=== PATIENT | male | born 1980 | race Two or more races ===

== ENCOUNTER 2019-03-11 20:04 | Emergency (ER) | payer SELFPAY ==
[~2019-03-11] VITALS: Ht 167.6 cm; Wt 77.1 kg
[2019-03-11 20:28] VITALS: BP 138/92
[2019-03-11] MEDS ORDERED: cefTRIAXone SOD 1,000 MG VL IM ONE (21:30)
[2019-03-11] MEDS ORDERED: TETANUS-DIPTH-ACEL PERTUSSIS 0.5ML SYRG IM ONE (21:30)
== END 2019-03-11 22:38 | disposition home or self-care (01) ==
LOC: ER 20:08
DX: S01.312A Laceration without foreign body of left ear, initial encounter (principal); W01.0XXA Fall on same level from slipping, tripping and stumbling without subsequent striking against object, initial encounter; Y93.89 Activity, other specified; Y99.8 Other external cause status; Y92.89 Other specified places as the place of occurrence of the external cause
CPT/HCPCS: 12013; 70450; 90471; 90715; 96372; 99284; J0696

== ENCOUNTER 2025-05-18 16:01 | Emergency (ER) | payer MEDICAID, OTHER ==
[~2025-05-18] VITALS: Ht 167.6 cm; Wt 76.5 kg
--- NOTE | 2025-05-18 16:38 | ED.PDOC ---
History of Present Illness HPI Comments This is a 45 year old male presenting to the ED with chief complaint of rashes and jaundice. Patient reports that he has been experiencing itchiness to his whole body with associated rashes and jaundice for the past 3 weeks. Patient relays that he was seen by urgent care this afternoon and had labs performed, being told his bilirubin level was high, advising him to come into the ED. Patient notes he only occasionally drinks about twice a month minimally. Patient denies any N/V/D, abdominal pain, chest pain, SOB, dizziness, N/V, fever, or chills. Time Seen by MD: 16:36 Primary Care Provider: NONE Reviewed Notes: Nurses Notes, Medications, Allergies Allergies: Coded Allergies: NO KNOWN ALLERGIES (Unverified , 03/11/19) Information Source: Patient Mode of Arrival: Ambulatory Severity: Moderate Timing: Weeks Duration: Since onset Prehospital treatment: None Past Medical History PAST MEDICAL HISTORY: DM Surgical History: Denies all surgeries Family History Family History: Unknown Social History Smoker: Non-Smoker Alcohol: Denies ETOH Use Drugs: Denies Drug Use Lives In: Home Constitutional: denies: chills, diaphoresis, fatigue, fever, malaise, sweats, weakness, others EENTM: denies: blurred vision, double vision, ear bleeding, ear discharge, ear drainage, ear pain, ear ringing, eye pain, eye redness, hearing loss, mouth pain, mouth swelling, nasal discharge, nose bleeding, nose congestion, nose pain, photophobia, tearing, throat pain, throat swelling, voice changes, others Respiratory: denies: cough, hemoptysis, orthopnea, SOB at rest, shortness of breath, SOB with excertion, stridor, wheezing, others Cardiovascular: denies: chest pain, dizzy spells, diaphoresis, Dyspnea on exertion, edema, irregular heart beat, left arm pain, lightheadedness, palpitations, PND, syncope, others Gastrointestinal: denies: abdomen distended, abdominal pain, blood streaked bowels, constipated, diarrhea, dysphagia, difficulty swallowing, hematemesis, melena, nausea, poor appetite, poor fluid intake, rectal bleeding, rectal pain, vomiting, others Genitourinary: denies: burning, dysuria, flank pain, frequency, hematuria, incontinence, penile discharge, penile sore, pain, testicle pain, testicle swelling, urgency, others Neurological: denies: dizziness, fainting, headache, left sided numbness, left sided weakness, numbness, paresthesia, pre-existing deficit, right sided numbness, right sided weakness, seizure, speech problems, tingling, tremors, weakness, others Musculoskeletal: denies: back pain, gout, joint pain, joint swelling, muscle pain, muscle stiffness, neck pain, others Integumetry: reports: change in color (Yellow), lesions; denies: bruises, change in hair/nails, dryness, laceration, lumps, rash, wounds, others Allergic/Immunocompromised: reports: Itching; denies: Difficulty Healing, Frequent Infections, Hives, others Hematologic/Lymphatic: denies: anemia, blood clots, easy bleeding, easy bruising, swollen glands, others Endocrine: denies: excessive hunger, excessive sweating, excessive thirst, excessive urination, flushing, intolerance to cold, intolerance to heat, unexplained weight gain, unexplained weight loss, others Psychiatric: denies: anxiety, bipolar disorder, depression, hopeless, panic disorder, schizophrenia, sleepless, suicidal, others All Other Systems: Reviewed and Negative Physical Exam General Appearance: No Apparent Distress, Normal HEENT: Pharynx Normal, Scleral Icterus (L), Scleral Icterus (R), TMs Normal Neck: Full Range of Motion, Non-Tender, Normal, Normal Inspection Respiratory: Chest Non-Tender, Lungs Clear, No Accessory Muscle Use, No Respiratory Distress, Normal Breath Sounds Cardiovascular: No Edema, No JVD, No Murmur, No Gallop, Normal Peripheral Pulses, Regular Rate/Rhythm Breast Exam: Deferred Gastrointestinal: No Organomegaly, Non Tender, No Pulsatile Mass, Normal Bowel Sounds, Soft Genitalia: Deferred Pelvic: Deferred Rectal: Deferred Extremities: No calf tenderness, Normal capillary refill, Normal inspection, Normal range of motion, Non-tender, No pedal edema Musculoskeletal : Apperance: Normal Neurologic: Alert, systems trainer II-XII nml as Tested, No Motor Deficits, Normal Affect, Normal Mood, No Sensory Deficits Cerebellar Function: Normal Reflexes: Normal Skin: Dry, Jaundice, Warm, Other (Petechiae and purpura noted to extremities.) Lymphatic: No Adenopathy Was a procedure done? Was a procedure done?: No Differential Dx Considerations may include: Biliary sclerosis, Hepatitis, Liver Cirrhosis, coagulopathy X-Ray, Labs, Meds, VS Vital Signs Date Time Temp Pulse Resp B/P (MAP) Pulse Ox O2 Delivery O2 Flow Rate FiO2 05/18/25 18:16 98.3 71 20 122/56 (78) 97 98.3 05/18/25 16:41 98.2 70 16 114/75 (88) 97 98.2 Lab Test 05/18/25 16:48 Range/Units White Blood Count 8.0 4.4-10.8 10^3/uL Red Blood Count 5.11 4.5-5.90 10^6/uL Hemoglobin 15.2 13.5-17.5 g/dL Hematocrit 44.4 41.0-53.0 % Mean Corpuscular Volume 86.9 80.0-100.0 fL Mean Corpuscular Hemoglobin 29.8 28.0-32.0 pg Mean Corpuscular Hemoglobin Concent 34.3 32.0-36.0 g/dL Red Cell Distribution Width 17.0 H 11.8-14.3 % Platelet Count 352 140-450 10^3/uL Mean Platelet Volume 9.1 6.9-10.8 fL Neutrophils (%) (Auto) 61.1 37.0-80.0 % Lymphocytes (%) (Auto) 25.2 10.0-50.0 % Monocytes (%) (Auto) 12.9 H 0.0-12.0 % Eosinophils (%) (Auto) 0.4 0.0-7.0 % Basophils (%) (Auto) 0.4 0.0-2.0 % Neutrophils # (Auto) 4.9 1.6-8.6 10 ^3/uL Lymphocytes # (Auto) 2.0 0.4-5.4 10 ^3/uL Monocytes # (Auto) 1.0 0-1.3 10 ^3/uL Eosinophils # (Auto) 0 0-0.8 10 ^3/uL Basophils # (Auto) 0 0-0.2 10 ^3/uL Nucleated Red Blood Cells 0.0 % Sodium Level 134 L 136-145 mmol/L Potassium Level 4.0 3.5-5.1 mmol/L Chloride Level 99 98-107 mmol/L Carbon Dioxide Level 28 20-31 mmol/L Anion Gap 7 5-15 Blood Urea Nitrogen 13 9-23 mg/dL Creatinine 0.88 0.700-1.30 mg/dL Glomerular Filtration Rate Calc 107 >90 mL/min BUN/Creatinine Ratio 14.8 10.0-20.0 Serum Glucose 137 H 74-106 mg/dL Calcium Level 9.9 8.7-10.4 mg/dL Total Bilirubin 16.3 H 0.2-1.0 mg/dL Aspartate Amino Transferase (AST) 46 H 13-40 U/L Alanine Aminotransferase (ALT) 58 H 7-40 U/L Alkaline Phosphatase 314 H 46-116 U/L Total Protein 8.0 5.7-8.2 g/dL Albumin 4.4 3.2-4.8 g/dL Acetaminophen Level 10.0 10.0-20.0 UG/ML Time of 1ST Reevaluation: 17:33 Reevaluation 1ST: Unchanged Time of 2ND Reevaluation: 18:23 Reevaluation 2ND: Unchanged Patient Education/Counseling: Diagnosis, Treatment, Prognosis, Need For Follow Up Family Education/Counseling: No Family Present Comments pt is comfortable. other than the pruritis due to hyperbilirubinemia, the US is inconclusive. pt will need further studies. Additional Information Reviewed patient's previous visit(s): None The following tests were ordered, and results were reviewed by me: CBC, CMP, Coag panel, Gallbladder US, UDS, Acetaminophen Additional information was gathered from interviewing the following independent historian: None I reviewed and agreed with the following test results read by other provider: Gallbladder US I discussed treatments and results with medical personnel and: Patient Comprehensive systems review obtained and negative except for what is stated in the HPI. SEPSIS Sepsis Screen Physician Orders Ptt & Cbc Qd While On Heparin (05/18/25 16:32) Gallbladder (05/18/25 16:38) Drug Screen (05/18/25 16:38) Vital Signs Date Time Temp Pulse Resp B/P (MAP) Pulse Ox O2 Delivery O2 Flow Rate FiO2 05/18/25 18:16 98.3 71 20 122/56 (78) 97 98.3 05/18/25 16:41 98.2 70 16 114/75 (88) 97 98.2 Laboratory Tests Test 05/18/25 16:48 White Blood Count 8.0 10^3/uL (4.4-10.8) Departure 1 Departure Time of Disposition: 18:25 Impression: Primary Impression: Hyperbilirubinemia Additional Impression: Abnormal liver ultrasound Disposition: 09 ADMITTED INPATIENT Admit to: Med Surg Condition: Serious Discharged With: Self Critical Care Note Critical Care Time?: Yes (55 min-critical care time only) Critical care comment: due to concerns for patient's condition deteriorating, the care required my highest level of attention and readiness to intervene. i assessed the patient's condition, ordered the proper tests and treatments, reassessed for response and reviewed the results. i communicated with medical personnel and formulated a plan of care. total critical care time does not include any procedures Stability Stability form required: No Heart Score Heart Score: Heart Score Response (Comments) Value History N/A 0 EKG N/A 0 Age N/A 0 Risk Factors N/A 0 Troponin N/A 0 Total 0 I personally scribed for NEDRA JAEGER MD ([email or web address]) on 05/18/25 at 16:38. Electronically submitted by Chaitanya Pollard ([email or web address]). I personally scribed for NEDRA JAEGER MD ([email or web address]) on 05/18/25 at 16:44. Electronically submitted by Chaitanya Pollard ([email or web address]). NEDRA JAEGER MD May 18, 2025 16:38
[2025-05-18 17:14] LABS: Hematocrit 44.4 % (41.0-53.0); Hemoglobin 15.2 g/dL (13.5-17.5); Mean Corpuscular Hemoglobin 29.8 pg (28.0-32.0); Mean Corpuscular Volume 86.9 fL (80.0-100.0); Nucleated Red Blood Cells % 0.0 %
[2025-05-18 17:28] LABS: Albumin 4.4 g/dL (3.2-4.8); Anion Gap 7 (5-15); Blood Urea Nitrogen 13 mg/dL (9-23); Calcium 9.9 mg/dL (8.7-10.4); Carbon Dioxide 28 mmol/L (20-31); Chloride 99 mmol/L (98-107); Potassium 4.0 mmol/L (3.5-5.1)
[2025-05-18 17:29] LABS: BUN/Creatinine Ratio 14.8 (10.0-20.0)
[2025-05-18 17:32] LABS: Alanine Aminotransferase 58 U/L (7-40); Alkaline Phosphatase 314 U/L (46-116); Bilirubin, Total 16.3 mg/dL (0.2-1.0); Glucose 137 mg/dL (74-106); Sodium 134 mmol/L (136-145); Total Protein 8.0 g/dL (5.7-8.2)
--- NOTE | 2025-05-18 18:20 | DVH ---
EXAM: US GALLBLADDER CLINICAL HISTORY: jaundice TECHNIQUE: Grayscale and limited color flow doppler ultrasound of the right upper quadrant is perfor med. COMPARISON: None Findings: Liver measures 16.5 cm in length with heterogeneous echotexture and contour. Intrahepatic ductal dila tation. Multiple hypoechoic lesions throughout the liver, the largest measures 0.7 x 0.6 x 0.8 cm. Co mmon bile duct measures 1.0 cm in diameter. Normal hepatopedal flow noted within the portal vein. No perihepatic free fluid is noted. Gallbladder is distended with wall thickness measuring 0.4 cm. There is shadowing calculi and biliary sludge. No evidence of pericholecystic fluid. Negative sonographic Chowdary's sign. Pancreas not well-visualized due to overlying bowel gas. Right kidney measures 10.9 cm with normal contours, echotexture and cortical thickness. 0.3 cm cortic al calcification. No evidence of hydronephrosis, calculi, cystic or solid renal lesions. Partially visualized inferior vena cava unremarkable. Impression: 1. No evidence of acute right upper quadrant abnormalities. 2. Heterogeneous hepatic echotexture with multiple hypoechoic lesions throughout the liver, nonspecif ic. Recommend contrast-enhanced MRI for further evaluation. 3. Intra and extrahepatic ductal dilatation. 4. Distended gallbladder with cholelithiasis and wall thickening. Negative sonographic chowdary's sign. Findings are equivocal for acute cholecystitis.
[2025-05-18 18:40] VITALS: PULSE 58; RESP 17; O2SAT 95
[2025-05-18 19:20] VITALS: PULSE 61; RESP 19; O2SAT 95
[2025-05-18 20:38] LABS: Amphetamine Screen, Urine Neg (NEGATIVE); Barbiturate Scree,Urine Neg (NEGATIVE); Benzodiazephine Screen, Urine Neg (NEGATIVE); Cannabinoid Screen, Urine Neg (NEGATIVE); Cocaine Screen, Urine Neg (NEGATIVE); Opiate Scree,Urine Neg (NEGATIVE); Phencyclidine Screen, Urine Neg (NEGATIVE)
[2025-05-18 21:49] LABS: Albumin 4.0 g/dL (3.2-4.8); Anion Gap 10 (5-15); Blood Urea Nitrogen 14 mg/dL (9-23); Calcium 10.1 mg/dL (8.7-10.4); Carbon Dioxide 26 mmol/L (20-31); Chloride 100 mmol/L (98-107); Potassium 3.8 mmol/L (3.5-5.1)
[2025-05-18 22:01] LABS: BUN/Creatinine Ratio 12.8 (10.0-20.0)
[2025-05-18 22:07] LABS: Alkaline Phosphatase 290 U/L (46-116); Glucose 213 mg/dL (74-106); Sodium 136 mmol/L (136-145)
[2025-05-18 22:08] LABS: Alanine Aminotransferase 53 U/L (7-40); Bilirubin, Total 15.0 mg/dL (0.2-1.0); Total Protein 7.2 g/dL (5.7-8.2)
[2025-05-18] MEDS: SODIUM CHLORIDE 0.9% 1,000 ML IV ONE (23:42)
[2025-05-19 05:03] VITALS: BP 109/72; PULSE 57; RESP 15; TEMP 98; O2SAT 95
== END 2025-05-19 06:08 | disposition short-term general hospital (02) ==
LOC: ER 16:01
DX: E80.6 Other disorders of bilirubin metabolism (principal); R93.2 Abnormal findings on diagnostic imaging of liver and biliary tract; E11.9 Type 2 diabetes mellitus without complications
CPT/HCPCS: 36415; 76705; 80053; 80307; 80329; 83690; 85025; 96360; 96361; 99285; J7030

== ENCOUNTER 2025-06-01 18:42 | Inpatient (IN) | payer MEDICAID ==
[~2025-06-01] VITALS: Ht 167.6 cm; Wt 73.0 kg
--- NOTE | 2025-06-01 19:05 | ED.PDOC ---
GI ASSESSMENT HPI Comments HPI: Poor Historian. 45 F who presents to the ED via EMS for chief complaint of abdominal pain - pt states he has recently been diagnosed with pancreatic cancer with liver METS at 1x week prior and states he was transferred to [place] for ERCP for hyperbilirubinemia - pt has biliary stent placed and discharged from [facility] and given referral for oncologist at [facility] for further evaluation - pt states he was at appt today with oncologist and referred to the ED for possible biliary stent blockage and replacement with IR - pt in the ED, appears yellow in appearance and states over the past 2 days, he has been having severe itching and pain and has been having difficulty sleeping due to the pain - pt has been taking cholestyramine but states it has not been helping - pt in the ED, otherwise denies any other symptoms and has otherwise stable vitals Past Medical history: DM, pancreatic cancer with Liver METS, kidney disease Past Surgical history: ERCP, Medications: metformin, cholestyramine Social History: Denies smoking, ETOH, and drug use. Allergies: NKDA REVIEW OF SYSTEMS: CONSTITUTIONAL: Denies acute: fever, diaphoresis, chills, HEAD: Denies acute: headache, photophobia Eyes: Denies acute: Double vision, vision loss, eye pain, eye discharge. EARS: Denies acute: tinnitus, hearing loss, ear discharge, ear pain, THROAT: Denies acute: sore throat, swelling, difficulty swallowing , pain with sw allowing, change in voice. NECK: Denies acute: neck pain, neck swelling, stiff neck. HEART: Denies acute : chest pain, palpitations, LUNGS: Denies acute: SOB, wheezing, cough, hemoptysis ABDOMEN: Denies acute: abdominal pain, Nausea, Vomiting, diarrhea, melena , hematemesis, hematochezia SKIN: Denies acute: rash, redness, lesions, EXTREMITIES: Denies acute: calf pain, numbness, tingling, weakness, denies pain in extremity. Denies acute: Low back pain. Neuro: Denies acute: focal neurological deficit, motor or sensory focal neurological deficit, tremors, seizure like activity, confusion, dizziness, change in mental status, loss of bowel or bladder function, cauda equina like symptoms. : Denies acute: dysuria, hematuria, flank pain, increase in urinary frequency. PSYCH: Denies acute: hallucination, suicidal ideation, homicidal ideation. PHYSICAL EXAM: General: --------acute distress, awake and alert. Head: normocephalic, atraumatic. Neck: supple, trachea is midline, no swelling. Throat: Normal phonation. Eyes:, no erythema, no purulent discharge, no proptosis, Heart: regular rate, regular rhythm, no significant murmur appreciated. Lungs: no apparent respiratory distress, Able to speak in full sentences. No wheezing, no rhonchi, no crackles. No stridors Clear to auscultation bilaterally. Abdomen: non tender to palpation, non distended, soft, no guarding, no rebound, + bowel sounds. Neuro: Awake, Alert, oriented to name, self, situation, follows commands GCS=15. Speech is normal. Skin: no petechia, no purpura, no cyanosis, non-pale, noted jaundice Lower extremities: --no - Pitting edema no deformity, no focal swelling, no calf TTP. Makes eye contact. moves all four extremities. Face: no apparent facial droop. Ambulating in the ED independently. ED COURSE: DISCLAIMER: This medical document was created using an electronic medical record system with voice recognition software and computerized dictation system. Although this document has been carefully reviewed, there might still be some phonetic and typographical errors. Occasional wrong-word or "sound-alike" substitutions may have occurred due to the inherent limitations of voice recognition software. These areas are purely typographical due to imperfections of the software programs and do not reflect any compromise in the patient's medical care. Please read the chart carefully and recognize, using context, where these substitutions have occurred. REVIEW OF SYSTEMS: CONSTITUTIONAL: Denies acute: fever, diaphoresis, chills, HEAD: Denies acute: headache, photophobia Eyes: Denies acute: Double vision, vision loss, eye pain, eye discharge. EARS: Denies acute: tinnitus, hearing loss, ear discharge, ear pain, THROAT: Denies acute: sore throat, swelling, difficulty swallowing , pain with swallowing, change in voice. NECK: Denies acute: neck pain, neck swelling, stiff neck. HEART: Denies acute : chest pain, palpitations, LUNGS: Denies acute: SOB, wheezing, cough, hemoptysis ABDOMEN: Denies acute: abdominal pain, Nausea, Vomiting, diarrhea, melena , hematemesis, hematochezia SKIN: Denies acute: rash, redness, lesions, EXTREMITIES: Denies acute: calf pain, numbness, tingling, weakness, denies pain in extremity. Denies acute: Low back pain. Neuro: Denies acute: focal neurological deficit, motor or sensory focal neurological deficit, tremors, seizure like activity, confusion, dizziness, change in mental status, loss of bowel or bladder function, cauda equina like symptoms. : Denies acute: dysuria, hematuria, flank pain, increase in urinary frequency. PSYCH: Denies acute: hallucination, suicidal ideation, homicidal ideation. PHYSICAL EXAM: General: ----no----acute distress, awake and alert. Head: normocephalic, atraumatic. Neck: supple, trachea is midline, no swelling. Throat: Normal phonation. Eyes:, no erythema, no purulent discharge, no proptosis, noted icterus. Heart: regular rate, regular rhythm, no significant murmur appreciated. Lungs: no apparent respiratory distress, Able to speak in full sentences. No wheezing, no rhonchi, no crackles. No stridors Clear to auscultation bilaterally. Abdomen: non tender to palpation, non distended, soft, no guarding, no rebound, + bowel sounds. Neuro: Awake, Alert, oriented to name, self, situation, follows commands GCS=15. Speech is normal. Skin: no petechia, no purpura, no cyanosis, non-pale, noted jaundice Lower extremities: --no - Pitting edema no deformity, no focal swelling, no calf TTP. Makes eye contact. moves all four extremities. Face: no apparent facial droop. Ambulating in the ED independently. ED COURSE: DISCLAIMER: This medical document was created using an electronic medical record system with voice recognition software and computerized dictation system. Although this document has been carefully reviewed, there might still be some phonetic and typographical errors. Occasional wrong-word or "sound-alike" substitutions may have occurred due to the inherent limitations of voice recognition software. These areas are purely typographical due to imperfections of the software programs and do not reflect any compromise in the patient's medical care. Please read the chart carefully and recognize, using context, where these substitutions have occurred. Time Seen by MD: 18:45 Primary Care Provider: ROSSY Reviewed Notes: Medications, Allergies Allergies: Coded Allergies: NO KNOWN ALLERGIES (Unverified , 03/11/19) Home Meds Reported Medications Metformin Hydrochloride (Metformin Hcl) 500 Mg Tab, 1000 MG PO BID for 30 Days, MG 06/03/25 Information Source: Patient, Spouse Mode of Arrival: Ambulatory Past Medical History PAST MEDICAL HISTORY: DM Surgical History: Denies all surgeries Family History Family History: Unknown Social History Smoker: Non-Smoker Alcohol: Denies ETOH Use Drugs: Denies Drug Use Lives In: Home Was a procedure done? Was a procedure done?: No GI differential Dx Differential Diagnosis: Other (DDX include but not limited to diverticulitis, colitis, gastroenteritis, acute abdomen, SBO, enteritis, constipation, volvulus, appendicitis, Gallbladder disease, choledocolithiasis, ascending cholangitis, pancreatitis, intraAbdominal mass/neoplasm, hepatitis, UTI, pylonephritis, kidney stone, aneurysm, dissection, Inflammatory bowel disease, gastroparesis, ischemic bowel.) X-Ray, Labs, Meds, VS Vital Signs Date Time Temp Pulse Resp B/P (MAP) Pulse Ox O2 Delivery O2 Flow Rate FiO2 06/01/25 21:14 98.3 56 16 120/72 (88) 95 98.3 06/01/25 21:14 56 16 95 Room Air* 0 21 06/01/25 19:05 98.7 60 16 120/72 (88) 98 98.7 Lab Test 06/01/25 19:12 06/01/25 19:05 Range/Units White Blood Count 8.7 4.4-10.8 10^3/uL Red Blood Count 4.96 4.5-5.90 10^6/uL Hemoglobin 14.9 13.5-17.5 g/dL Hematocrit 43.3 41.0-53.0 % Mean Corpuscular Volume 87.3 80.0-100.0 fL Mean Corpuscular Hemoglobin 30.0 28.0-32.0 pg Mean Corpuscular Hemoglobin Concent 34.4 32.0-36.0 g/dL Red Cell Distribution Width 15.9 H 11.8-14.3 % Platelet Count 430 140-450 10^3/uL Mean Platelet Volume 8.2 6.9-10.8 fL Neutrophils (%) (Auto) 60.8 37.0-80.0 % Lymphocytes (%) (Auto) 27.1 10.0-50.0 % Monocytes (%) (Auto) 10.7 0.0-12.0 % Eosinophils (%) (Auto) 0.6 0.0-7.0 % Basophils (%) (Auto) 0.8 0.0-2.0 % Neutrophils # (Auto) 5.3 1.6-8.6 10 ^3/uL Lymphocytes # (Auto) 2.4 0.4-5.4 10 ^3/uL Monocytes # (Auto) 0.9 0-1.3 10 ^3/uL Eosinophils # (Auto) 0.1 0-0.8 10 ^3/uL Basophils # (Auto) 0.1 0-0.2 10 ^3/uL Nucleated Red Blood Cells 0.1 % Sodium Level 137 136-145 mmol/L Potassium Level 4.6 3.5-5.1 mmol/L Chloride Level 101 98-107 mmol/L Carbon Dioxide Level 29 20-31 mmol/L Anion Gap 7 5-15 Blood Urea Nitrogen 13 9-23 mg/dL Creatinine 0.89 0.700-1.30 mg/dL Glomerular Filtration Rate Calc 106 >90 mL/min BUN/Creatinine Ratio 14.6 10.0-20.0 Serum Glucose 120 H 74-106 mg/dL Lactic Acid Level 1.0 0.4-2.0 mmol/L Calcium Level 10.0 8.7-10.4 mg/dL Total Bilirubin 9.0 H 0.2-1.0 mg/dL Aspartate Amino Transferase (AST) 70 H 13-40 U/L Alanine Aminotransferase (ALT) 66 H 7-40 U/L Alkaline Phosphatase 325 H 46-116 U/L Troponin I High Sensitivity 4 </=54 ng/L Total Protein 7.6 5.7-8.2 g/dL Albumin 4.1 3.2-4.8 g/dL Lipase 20 12-53 U/L Urine Color Dark-yellow Yellow Urine Clarity Clear Clear Urine pH 5.5 5.0-9.0 Urine Specific Early 1.024 1.001-1.035 Urine Protein Trace H Negative Urine Ketones Negative Negative Urine Blood Negative Negative /uL Urine Nitrite Negative Negative Urine Bilirubin 1+ Negative Urine Urobilinogen 2 H Negative mg/dL Urine Leukocyte Esterase Negative Negative /uL Urine RBC 5 0 - 3 /hpf Urine Microscopic WBC 1 0-3 /HPF Urine Squamous Epithelial Cells Few <5 /hpf Urine Calcium Oxalate Crystals Mod None Seen Urine Bacteria None seen None Seen /hpf Urine Mucus Few None Seen Urine Glucose Normal Normal mg/dL [facility] [id number] [place] [address] Ph: [phone] DIAGNOSTIC IMAGING Diagnostic Imaging Report : [id number] Signed PATIENT: KY KAMARA ACCT: [id number] UNIT: [id number] : 1980 LOC: ER ROOM / BED: / AGE / SEX: 45 / M ADM STATUS: REG ER SERVICE 51 ORDERING PHYSICIAN: KATHI HUTCHISON DO PROCEDURE(s): ABPL - CT AB PEL WO CON-NO ORAL OR IV REASON: flank pain ORDER NUMBER(s): [id number], ACCESSION NUMBER(s): [id number] COMPUTERIZED TOMOGRAPHY ABDOMEN AND PELVIS WITHOUT CONTRAST REASON FOR EXAM: flank pain COMPARISON: None TECHNIQUE: Spiral scans were acquired from the diaphragm to the symphysis pubis without intravenous contrast administration. 2-D coronal and sagittal reformatted images were provided. Radiation optimization: All CT scans at this facility use at least one of these dose optimization techniques: Automated exposure control mA and/or kV adjustment per patient size (includes targeted exams where dose is matched to clinical indication) or iterative reconstruction. RADIATION DOSE: CTDI: 7.68 mGy DLP: 443.46 mGy-cm FINDINGS: There is a small cluster of tiny (2 mm) calcifications in the dependent right lower lobe likely secondary to prior granulomatous disease. The visualized lung bases are otherwise unremarkable. There is no pleural effusion. There is no pericardial effusion. The spleen is not enlarged. The liver is normal in size and contour. There are numerous hypodense masses within the liver, the largest of which measures 1.9 cm in the right liver dome. The gallbladder wall appears thickened at approximately 7 mL. No calcified gallstone is identified. There is no pericholecystic fluid. Evaluation of the abdominal organs is significantly degraded by the absence of IV contrast. There is a common bile duct stent extending from the hepatic hilum into the duodenum. There is fullness of the pancreatic head. There is atrophy of the pancreatic body and tail. The adrenal glands are normal. The kidneys are similar in size. There is no hydronephrosis of either kidney. There is no renal, ureteral, or bladder calculus. The urinary bladder is decompressed and is not well evaluated. There is no abdominal aortic aneurysm. The prostate and seminal vesicles are within normal limits. The colonic stool burden is moderate. The appendix is normal. There is small to moderate fluid distributed throughout the small bowel without pathologic distention or transition point. There is subtle edema within the retroperitoneum and the small bowel mesentery inferior to the pancreas. No pathologic lymphadenopathy is identified by size criteria within the limitations of this noncontrast study. No free fluid is identified in the abdomen or pelvis. No acute osseous abnormality is identified. No focal bony lesion is identified. IMPRESSION: Numerous hypodense masses within the liver, the largest of which measures 1.9 cm in the right liver dome. This is primarily concerning for metastatic disease. Note that evaluation is suboptimal in the absence of intravenous contrast. Common bile duct stent in good position. Fullness of the pancreatic head with a trophy of the pancreatic body and tail. Suboptimally evaluated in the absence of intravenous contrast. No renal, ureteral, or bladder calculus. No hydronephrosis of either kidney. Gallbladder wall thickening at approximately 7 mm. No calcified gallstone is identified. Consider right upper quadrant ultrasound if clinically indicated. Moderate colonic stool burden. Correlate clinically for constipation. Subtle edema within the retroperitoneum and small bowel mesentery inferior to the pancreas. Correlate clinically with serum lipase for possible pancreatitis. ATED BY: SAE SERRANO MD DICTATED DATE/TIME: 06/01/251956 SIGNED BY: SAE SERRANO MD SIGNED DATE/TIME: 06/01/251956 CC: Time of 1ST Reevaluation: 00:00 Reevaluation 1ST: N/A Patient Education/Counseling: Diagnosis, Treatment Family Education/Counseling: Diagnosis, Treatment Comments MDM: patient presented with the above HPI.---abdominal pain---workup was i nitiated. patient was found with the above mentioned diagnosis. the following medications were ordered: please refer to order lists of meds and tests obtained by myself Dr. Hutchison. Patient ED course and VS have been stabilized. Patient has been reassessed in the ED and remained in a stable condition. Pertinent incidental findings were discussed with the patient and/or family. Patient/family voices understanding and is agreeable with plan. Patient has been observed in the ED adequate length of time to insure improvement/stability. Escalation of care considered: Consideration of escalation to observation or admission Patient was ADMITTED to the medicine team for further evaluation and treatment of their presentation. All the reports of any imaging studies that were ordered by myself were reviewed by myself. SEPSIS Sepsis Screen Physician Orders Manager Consumer (06/01/25 ) Ct Ab Pel Wo Con-No Oral Or Iv (06/01/25 18:52) Code Status (06/01/25 21:56) Oxygen Per Hour (06/01/25 21:56) * Gi Dvh Pals Nurse (06/01/25 21:56) Abdomen Limited (06/01/25 21:56) Admit (06/01/25 22:28) Oxygen By Nasal Cannula (06/01/25 22:28) Vital Signs Date Time Temp Pulse Resp B/P (MAP) Pulse Ox O2 Delivery O2 Flow Rate FiO2 06/01/25 21:14 98.3 56 16 120/72 (88) 95 98.3 06/01/25 21:14 56 16 95 Room Air* 0 21 06/01/25 19:05 98.7 60 16 120/72 (88) 98 98.7 Laboratory Tests Test 06/01/25 19:12 Lactic Acid Level 1.0 mmol/L (0.4-2.0) White Blood Count 8.7 10^3/uL (4.4-10.8) Departure 1 Departure Time of Disposition: 20:18 Impression: Primary Impression: Metastatic disease Additional Impressions: Pancreatic mass Hyperbilirubinemia Disposition: ADMITTED INPATIENT Admit to: Tele Condition: Guarded Discharged With: Self Critical Care Note Critical Care Time?: Yes (45 min-critical care time only) I personally scribed for KATHI HUTCHISON DO ([email or web address]) on 06/01/25 at 19:05. Electronically submitted by Helen Ayala ([facility] I personally scribed for KATHI HUTCHISON DO ([facility] on 06/01/25 at 19:34. Electronically submitted by Helen Ayala ([facility]). I personally scribed for KATHI HUTCHISON DO ([facility] on 06/01/25 at 21:28. Electronically submitted by Helen Ayala ([facility] I personally scribed for KATHI HUTCHISON DO ([email or web address]) on 06/01/25 at 21:34. Electronically submitted by Helen Ayala ([facility]). KATHI HUTCHISON DO Jun 01, 2025 19:05
[2025-06-01 19:32] LABS: Hematocrit 43.3 % (41.0-53.0); Hemoglobin 14.9 g/dL (13.5-17.5); Mean Corpuscular Hemoglobin 30.0 pg (28.0-32.0); Mean Corpuscular Volume 87.3 fL (80.0-100.0); Nucleated Red Blood Cells % 0.1 %
[2025-06-01 19:46] LABS: Urine Protein, UAD TRACE (Negative)
[2025-06-01 19:58] LABS: Albumin 4.1 g/dL (3.2-4.8); Anion Gap 7 (5-15); BUN/Creatinine Ratio 14.6 (10.0-20.0); Blood Urea Nitrogen 13 mg/dL (9-23); Calcium 10.0 mg/dL (8.7-10.4); Carbon Dioxide 29 mmol/L (20-31); Chloride 101 mmol/L (98-107); Potassium 4.6 mmol/L (3.5-5.1); Sodium 137 mmol/L (136-145); Total Protein 7.6 g/dL (5.7-8.2)
--- NOTE | 2025-06-01 19:59 | DVH ---
COMPUTERIZED TOMOGRAPHY ABDOMEN AND PELVIS WITHOUT CONTRAST REASON FOR EXAM: flank pain COMPARISON: None TECHNIQUE: Spiral scans were acquired from the diaphragm to the symphysis pubis without intravenous c ontrast administration. 2-D coronal and sagittal reformatted images were provided. Radiation optimiza tion: All CT scans at this facility use at least one of these dose optimization techniques: Automated exposure control mA and/or kV adjustment per patient size (includes targeted exams where dose is mat ched to clinical indication) or iterative reconstruction. RADIATION DOSE: CTDI: 7.68 mGy DLP: 443.46 mGy-cm FINDINGS: There is a small cluster of tiny (2 mm) calcifications in the dependent right lower lobe likely secon bianca to prior granulomatous disease. The visualized lung bases are otherwise unremarkable. There is n o pleural effusion. There is no pericardial effusion. The spleen is not enlarged. The liver is normal in size and contour. There are numerous hypodense ma sses within the liver, the largest of which measures 1.9 cm in the right liver dome. The gallbladder wall appears thickened at approximately 7 mL. No calcified gallstone is identified. There is no claudette cholecystic fluid. Evaluation of the abdominal organs is significantly degraded by the absence of IV contrast. There is a common bile duct stent extending from the hepatic hilum into the duodenum. There is fullness of the pancreatic head. There is atrophy of the pancreatic body and tail. The adrenal gl ands are normal. The kidneys are similar in size. There is no hydronephrosis of either kidney. There is no renal, ureteral, or bladder calculus. The urinary bladder is decompressed and is not well vignesh luated. There is no abdominal aortic aneurysm. The prostate and seminal vesicles are within normal li mits. The colonic stool burden is moderate. The appendix is normal. There is small to moderate fluid distributed throughout the small bowel without pathologic distention or transition point. There is finney btle edema within the retroperitoneum and the small bowel mesentery inferior to the pancreas. No pat hologic lymphadenopathy is identified by size criteria within the limitations of this noncontrast jimmy dy. No free fluid is identified in the abdomen or pelvis. No acute osseous abnormality is identified. No focal bony lesion is identified. IMPRESSION: Numerous hypodense masses within the liver, the largest of which measures 1.9 cm in the right liver d ome. This is primarily concerning for metastatic disease. Note that evaluation is suboptimal in the absence of intravenous contrast. Common bile duct stent in good position. Fullness of the pancreatic head with atrophy of the pancreat ic body and tail. Suboptimally evaluated in the absence of intravenous contrast. No renal, ureteral, or bladder calculus. No hydronephrosis of either kidney. Gallbladder wall thickening at approximately 7 mm. No calcified gallstone is identified. Consider ri ght upper quadrant ultrasound if clinically indicated. Moderate colonic stool burden. Correlate clinically for constipation. Subtle edema within the retroperitoneum and small bowel mesentery inferior to the pancreas. Correlate clinically with serum lipase for possible pancreatitis.
[2025-06-01 20:09] LABS: Alanine Aminotransferase 66 U/L (7-40); Alkaline Phosphatase 325 U/L (46-116); Bilirubin, Total 9.0 mg/dL (0.2-1.0); Glucose 120 mg/dL (74-106)
[2025-06-01] MEDS: SODIUM CHLORIDE 0.9% 1,000 ML IV ONE (21:13)
[2025-06-01 21:14] VITALS: PULSE 56; RESP 16; O2SAT 95
[2025-06-01] MEDS ORDERED: HYDROcodone-ACET 5/325MG TAB PO PRN (22:00)
[2025-06-01] MEDS ORDERED: DEXTROSE (50%) 50ML SYRG IV PRN (22:00)
[2025-06-01] MEDS ORDERED: DOCUSATE SOD 100 MG CAP PO PRN (22:00)
--- NOTE | 2025-06-01 22:29 | DVHHP2 ---
History of Present Illness Reason for Visit: Metastatic disease History of Present Illness The patient is a 45-year-old male with past medical history of DM, pancreatic cancer with Mets to the liver, and kidney disease who presented to [facility] ED with complaint of abdominal pain. Patient reports he was recently d iagnosed with pancreatic cancer with Mets to the liver at [facility] 1 week prior, he was transferred to [facility] for ERCP for hyperbilirubinemia. Patient has biliary stent placed and discharged from [facility] and given referral for oncologist at [facility] for further evaluation. He was at appointment today with oncology and was referred to ED for possible biliary stent blockage and placement with IR. Patient was seen and evaluated in the ED appears yellow in appearance with complaint of severe itching, abdominal pain, and insomnia due to the pain, has been taking cholestyramine but states it has not been helping. Laboratory data shows WBC 8.7, platelets 430, sodium 137, potassium 4.6, BUN 13, creatinine 0.89, glucose 120, calcium 10.0, lipase 20, troponin four, AST 70, ALT 66, alkaline phos 325, total bilirubin 9.0, blood pressure 120/72, heart rate 56, temperature 98.3 F, O2 saturation 96% on room air. Abdomen/pelvis CT revealing common bile duct stent in good position, gallbladder wall thickening at approximately 7 mm, no calcified gallstone is identified. Single organ ultrasound revealing liver measures 17 cm in length with changes of the parenchyma suggesting steatosis. Please see medication orders section in the computer. On my assessment, at bedside, patient denied chest pain, no headache, no dizziness, no diaphoresis, no shortness of breath, no nausea, no vomiting, no fever, no chills. Patient was admitted for further evaluation and medical management. Past Medical History DM, Pancreatic cancer with Liver METS, Kidney disease Past Surgical History ERCP, Stent placement Family History Reviewed, noncontributory to the management of this case. Past Social History The patient lives at home, denies smoking, alcohol or illicit drugs abuse. Review of Systems Constitutional: Yes: Weakness; No: Fever, Chills, Sweats, Malaise, Other Eyes: No: Pain, Vision change, Conjunctivae inflammation, Eyelid inflammation, Other, Redness ENT: No: Ear pain, Ear discharge, Nose pain, Nose discharge, Nose congestion, Mouth pain, Mouth swelling, Throat pain, Throat swelling, Other Respiratory: No: Cough, Dry, Shortness of breath, SOB with excertion, Wheezing, Hemoptysis, Pleuritic Pain, Sputum, Wheezing, Other Cardiovascular: No: Chest Pain, Palpitations, Orthopnea, Paroxysmal Noc. Dysp padmini, Edema, Lt Headedness, Other Gastrointestinal: Abdominal Pain; No: Nausea, Vomiting, Diarrhea, Constipation, Melena, Hematochezia, Other Genitourinary: No Dysuria, No Frequency, No Incontinence, No Hematuria, No Retention, No Other Musculoskeletal: No: other, neck pain, shoulder pain, arm pain, back pain, hand pain, leg pain, foot pain Skin: Jaundice; No: Rash, Lesions, Bruising, Other Neurological: No: Weakness, Numbness, Incoordination, Change in speech, Confusion, Seizures, Other Allergies: Coded Allergies: NO KNOWN ALLERGIES (Unverified , 03/11/19) Medications Current Medications Medications Dose Ordered Sig/Jennifer Route Start Time Stop Time Status Last Admin Dose Admin Diagnostic Test (Pha) 1 strip ACHS 06/01/25 22:00 Insulin Human Regular ACHS SC 06/01/25 22:00 Dextrose 50 ml UD PRN IV 06/01/25 22:00 Sodium Chloride 1,000 ml @ 60 mls/hr [id number] IV 06/01/25 22:00 Acetaminophen/ Hydrocodone Bitart 1 tab Q4HP PRN PO 06/01/25 22:00 Ondansetron HCl 4 mg Q4HP PRN IV 06/01/25 22:00 Docusate Sodium 100 mg BIDPRN PRN PO 06/01/25 22:00 Ibuprofen 400 mg Q6HP PRN PO 06/01/25 22:00 Exam Vital Signs Vital Signs Date Time Temp Pulse Resp B/P (MAP) Pulse Ox O2 Delivery O2 Flow Rate FiO2 06/01/25 21:14 98.3 56 16 120/72 (88) 95 98.3 06/01/25 21:14 Room Air* 0 21 General Appearance: Alert, Oriented X3, Cooperative, No acute distress HEENT: Atraumatic, PERRLA, EOMI, Mucous membr. moist/pink Respiratory: Normal air movement Cardiovascular: Regular rate, Normal S1, Normal S2, No murmurs Abdominal: Normal bowel sounds, Soft, No masses, Other (Reports tenderness) Extremities: No clubbing, No cyanosis, No edema, Normal pulses, No tenderne ss/swelling Skin: No rashes, No significant lesion Neuro: Normal speech, Normal tone, Sensation intact, Cranial nerves 3-12 NL, Reflexes 2+, Other (Generalized weakness) Psych/Mental Status: Mental status NL, Mood NL Labs/Xrays Labs Test 06/01/25 19:12 06/01/25 19:05 Range/Units White Blood Count 8.7 4.4-10.8 10^3/uL Red Blood Count 4.96 4.5-5.90 10^6/uL Hemoglobin 14.9 13.5-17.5 g/dL Hematocrit 43.3 41.0-53.0 % Mean Corpuscular Volume 87.3 80.0-100.0 fL Mean Corpuscular Hemoglobin 30.0 28.0-32.0 pg Mean Corpuscular Hemoglobin Concent 34.4 32.0-36.0 g/dL Red Cell Distribution Width 15.9 H 11.8-14.3 % Platelet Count 430 140-450 10^3/uL Mean Platelet Volume 8.2 6.9-10.8 fL Neutrophils (%) (Auto) 60.8 37.0-80.0 % Lymphocytes (%) (Auto) 27.1 10.0-50.0 % Monocytes (%) (Auto) 10.7 0.0-12.0 % Eosinophils (%) (Auto) 0.6 0.0-7.0 % Basophils (%) (Auto) 0.8 0.0-2.0 % Neutrophils # (Auto) 5.3 1.6-8.6 10 ^3/uL Lymphocytes # (Auto) 2.4 0.4-5.4 10 ^3/uL Monocytes # (Auto) 0.9 0-1.3 10 ^3/uL Eosinophils # (Auto) 0.1 0-0.8 10 ^3/uL Basophils # (Auto) 0.1 0-0.2 10 ^3/uL Nucleated Red Blood Cells 0.1 % Sodium Level 137 136-145 mmol/L Potassium Level 4.6 3.5-5.1 mmol/L Chloride Level 101 98-107 mmol/L Carbon Dioxide Level 29 20-31 mmol/L Anion Gap 7 5-15 Blood Urea Nitrogen 13 9-23 mg/dL Creatinine 0.89 0.700-1.30 mg/dL Glomerular Filtration Rate Calc 106 >90 mL/min BUN/Creatinine Ratio 14.6 10.0-20.0 Serum Glucose 120 H 74-106 mg/dL Lactic Acid Level 1.0 0.4-2.0 mmol/L Calcium Level 10.0 8.7-10.4 mg/dL Total Bilirubin 9.0 H 0.2-1.0 mg/dL Aspartate Amino Transferase (AST) 70 H 13-40 U/L Alanine Aminotransferase (ALT) 66 H 7-40 U/L Alkaline Phosphatase 325 H 46-116 U/L Troponin I High Sensitivity 4 </=54 ng/L Total Protein 7.6 5.7-8.2 g/dL Albumin 4.1 3.2-4.8 g/dL Lipase 20 12-53 U/L Urine Color Dark-yellow Yellow Urine Clarity Clear Clear Urine pH 5.5 5.0-9.0 Urine Specific [place] 1.024 1.001-1.035 Urine Protein Trace H Negative Urine Ketones Negative Negative Urine Blood Negative Negative /uL Urine Nitrite Negative Negative Urine Bilirubin 1+ Negative Urine Urobilinogen 2 H Negative mg/dL Urine Leukocyte Esterase Negative Negative /uL Urine RBC 5 0 - 3 /hpf Urine Microscopic WBC 1 0-3 /HPF Urine Squamous Epithelial Cells Few <5 /hpf Urine Calcium Oxalate Crystals Mod None Seen Urine Bacteria None seen None Seen /hpf Urine Mucus Few None Seen Urine Glucose Normal Normal mg/dL PATIENT: KY KAMARA ACCT: [id number] UNIT: [id number] : 1980 LOC: ER ROOM / BED: / AGE / SEX: 45 / M ADM STATUS: REG ER SERVICE 1852 ORDERING PHYSICIAN: KATHI HUTCHISON DO PROCEDURE(s): ABPL - CT AB PEL WO CON-NO ORAL OR IV REASON: flank pain ORDER NUMBER(s): [id number], ACCESSION NUMBER(s): [id number] COMPUTERIZED TOMOGRAPHY ABDOMEN AND PELVIS WITHOUT CONTRAST REASON FOR EXAM: flank pain COMPARISON: None TECHNIQUE: Spiral scans were acquired from the diaphragm to the symphysis pubis without intravenous contrast administration. 2-D coronal and sagittal reformatted images were provided. Radiation optimization: All CT scans at this facility use at least one of these dose optimization techniques: Automated expos ure control mA and/or kV adjustment per patient size (includes targeted exams where dose is matched to clinical indication) or iterative reconstruction. RADIATION DOSE: CTDI: 7.68 mGy DLP: 443.46 mGy-cm FINDINGS: There is a small cluster of tiny (2 mm) calcifications in the dependent right lower lobe likely secondary to prior granulomatous disease. The visualized lung bases are otherwise unremarkable. There is no pleural effusion. There is no pericardial effusion. The spleen is not enlarged. The liver is normal in size and contour. There are numerous hypodense masses within the liver, the largest of which measures 1.9 cm in the right liver dome. The gallbladder wall appears thickened at approximately 7 mL. No calcified gallstone is identified. There is no pericholecystic fluid. Evaluation of the abdominal organs is significantly degraded by the absence of IV contrast. There is a common bile duct stent extending from the hepatic hilum into the duodenum. There is fullness of the pancreatic head. There is atrophy of the pancreatic body and tail. The adrenal glands are normal. The kidneys are similar in size. There is no hydronephrosis of either kidney. There is no renal, ureteral, or bladder calculus. The urinary bladder is decompressed and is not well evaluated. There is no abdominal aortic aneurysm. The prostate and seminal vesicles are within normal limits. The colonic stool burden is moderate. The appendix is normal. There is small to moderate fluid distributed throughout the small bowel without pathologic distention or transition point. There is subtle edema within the retroperitoneum and the small bowel mesentery inferior to the pancreas. No pathologic lymphadenopathy is identified by size criteria within the limitations of this noncontrast study. No free fluid is identified in the abdomen or pelvis. No acute osseous abnormality is identified. No focal bony lesion is identified. IMPRESSION: Numerous hypodense masses within the liver, the largest of which measures 1.9 cm in the right liver dome. This is primarily concerning for metastatic disease. Note that evaluation is suboptimal in the absence of intravenous contrast. Common bile duct stent in good position. Fullness of the pancreatic head with atrophy of the pancreatic body and tail. Suboptimally evaluated in the absence of intravenous contrast. No renal, ureteral, or bladder calculus. No hydronephrosis of either kidney. Gallbladder wall thickening at approximately 7 mm. No calcified gallstone is identified. Consider right upper quadrant ultrasound if clinically indicated. Moderate colonic stool burden. Correlate clinically for constipation. Subtle edema within the retroperitoneum and small bowel mesentery inferior to the pancreas. Correlate clinically with serum lipase for possible pancreatitis. ORDERING PHYSICIAN: MIGUEL ANGEL TREVIZO DNP PROCEDURE(s): ABDL - ABDOMEN LIMITED REASON: Rule out obstruction ORDER NUMBER(s): [id number], ACCESSION NUMBER(s): [id number] INDICATION: Rule out obstruction TECHNIQUE: Multiple real-time sonographic images of the abdomen were obtained. COMPARISON: US GALLBLADDER on DOS: 05/18/25 FINDINGS: Hepatic parenchyma suggests steatosis. The liver measures 17 cm. No intrahepatic biliary ductal dilatation is noted. The gallbladder wall measures 0.79 cm and is unremarkable. No gallstones or sludge is seen. The common duct measures 0.79 cm and is unremarkable. No pericholecystic fluid is noted. The right kidney measures 9.1 cm. No hydronephrosis. The pancreas is not well visualized due to obscuration from bowel gas. The visualized portions of the IVC and aorta are grossly unremarkable. IMPRESSION: 1. Liver measures 17 cm in length with changes of the parenchyma suggesting steatosis. 2. Cholelithiasis with thickened gallbladder wall and mildly dilated common bile duct. Negative ultrasound marques's sign. SEPSIS Sepsis Screen Date sepsis recognized/suspect: Jun 01, 2025 Time Sepsis recognized/suspect: 1904 Recent Procedure: No Respiratory Rate >20: No Heart Rate >90: No Temp<36 C (96.8 F) or >38.3 C: No SBP <90 or MAP <65 mmHG: No New Acute Mental Status Change: No Is the patient on CPAP, BIPAP,: No Physician Orders Clinical Specialist (06/01/25 ) Ct Ab Pel Wo Con-No Oral Or Iv (06/01/25 18:52) Saline Lock (06/01/25 20:49) Consistent Carb(Ccho)Diabetes (06/02/25 Breakfast) Glucose Blood (Accu-Chek Comfort Curve T (06/01/25 22:00) Insulin R (Human) (Insulin R) (06/01/25 22:00) Dextrose 50% Syringe (06/01/25 22:00) Allergies (06/01/25 21:56) Code Status (06/01/25 21:56) Sodium Chloride 0.9% (06/01/25 22:00) Oxygen Per Hour (06/01/25 21:56) Hydrocodone-Acet 5/325mg Tab ([place] 5/32 (06/01/25 22:00) Ondansetron Hcl (Zofran) (06/01/25 22:00) Docusate Sodium Capsule (Colace Capsule) (06/01/25 22:00) Complete Blood Count (06/02/25 04:00) Comprehensive Metabolic Panel (06/02/25 04:00) Condition: Serious (06/01/25 21:56) Bedrest With Bathroom Privileg (06/01/25 21:56) Sequential Compression Device (06/01/25 ) * Gi Dvh Kosher Inspector (06/01/25 21:56) Ibuprofen Tablet (Motrin Tablet) (06/01/25 22:00) Abdomen Limited (06/01/25 21:56) Vital Signs Date Time Temp Pulse Resp B/P (MAP) Pulse Ox O2 Delivery O2 Flow Rate FiO2 06/01/25 21:14 98.3 56 16 120/72 (88) 95 98.3 06/01/25 21:14 56 16 95 Room Air* 0 21 06/01/25 19:05 98.7 60 16 120/72 (88) 98 98.7 Laboratory Tests Test 06/01/25 19:12 Lactic Acid Level 1.0 mmol/L (0.4-2.0) White Blood Count 8.7 10^3/uL (4.4-10.8) Medications Medications Dose Ordered Sig/Jennifer Route Start Time Stop Time Status Last Admin Dose Admin Sodium Chloride 1,000 ml @ 1,000 mls/hr Q1H ONCE IV 06/01/25 20:30 06/01/25 21:29 DC 06/01/25 21:13 1,000 MLS/HR Assessment/Plan Assessment/Plan Acute abdominal pain Metastatic disease Pancreatic mass Hyperbilirubinemia Elevated liver enzymes Generalized weakness Plan 1. Admit to telemetry unit 2. Breathing treatment 3. Pain control management 4. Management of fluids and electrolytes 5. Consultation for GI/oncology 6. Diagnostic tests abdomen/pelvis CT 7. DVT prophylaxis on SCDs 8. Repeat labs CBC, CMP in a.m. 9. Continue with current medical management 10. Treatment plan discussed with patient and RN. Patient verbalized understanding. Plan discussed with: Patient, Spouse ( at bedside), Other (RN) My Orders Orders - MIGUEL ANGEL TREVIZO DNP Procedure Category Date Status Time Consistent DIET 06/02/25 Transmitted Carb(Ccho)Diabetes Breakfast Glucose Blood PHA 06/01/25 In Process (Accu-Chek Comfort 22:00 Insulin R (Human) PHA 06/01/25 In Process (Insulin R) 22:00 Dextrose 50% Syringe PHA 06/01/25 In Process 22:00 Allergies HERMAN 06/01/25 In Process 21:56 Code Status CODE 06/01/25 Transmitted 21:56 Sodium Chloride 0.9% PHA 06/01/25 In Process 22:00 Oxygen Per Hour RT 06/01/25 Transmitted 21:56 Hydrocodone-Acet PHA 06/01/25 In Process 5/325mg Tab ([place] 22:00 Ondansetron Hcl PHA 06/01/25 In Process (Zofran) 22:00 Docusate Sodium PHA 06/01/25 In Process Capsule (Colace 22:00 Complete Blood Count LAB 06/02/25 Verified 04:00 Comprehensive LAB 06/02/25 Verified Metabolic Panel 04:00 Condition: Serious HERMAN 06/01/25 In Process 21:56 Bedrest With Bathroom HERMAN 06/01/25 In Process Privileg 21:56 Sequential HERMAN 06/01/25 In Process Compression Device * Gi Dvh Kosher Inspector CONS 06/01/25 Transmitted 21:56 Ibuprofen Tablet PHA 06/01/25 In Process (Motrin Tablet) 22:00 Abdomen Limited US 06/01/25 Logged 21:56 Problem List: (1) Acute abdominal pain (2) Metastatic disease (3) Pancreatic mass (4) Hyperbilirubinemia (5) Elevated liver enzymes (6) Generalized weakness Date of Service: Jun 01, 2025 Billing Provider: MIGUEL ANGEL TREVIZO DNP Common Visit Codes: [id number] INP/OBS CARE (HIGH) MIGUEL ANGEL TREVIZO DNP Jun 01, 2025 22:29
[2025-06-01] MEDS ORDERED: MORPHINE SULFATE INJ 2 MG/ml SYRG IV PRN (22:30)
[2025-06-01] MEDS ORDERED: NITROGLYCERIN 0.4 MG SL TAB SL PRN (22:30)
[2025-06-01] MEDS: InsuLIN REG 1unit/0.01ml Soln (100units/ml) SC SCH (22:51)
[2025-06-01] MEDS: ACCU-CHEK COMFORT CURVE STRIP VI SCH (22:51)
[2025-06-01] MEDS: SODIUM CHLORIDE 0.9% 1,000 ML IV SCH (22:52)
--- NOTE | 2025-06-01 22:58 | DVH ---
INDICATION: Rule out obstruction TECHNIQUE: Multiple real-time sonographic images of the abdomen were obtained. COMPARISON: US GALLBLADDER on DOS: 05/18/25 FINDINGS: Hepatic parenchyma suggests steatosis. The liver measures 17 cm. No intrahepatic biliary d uctal dilatation is noted. The gallbladder wall measures 0.79 cm and is unremarkable. No gallstones or sludge is seen. The co mmon duct measures 0.79 cm and is unremarkable. No pericholecystic fluid is noted. The right kidney measures 9.1 cm. No hydronephrosis. The pancreas is not well visualized due to obscuration from bowel gas. The visualized portions of the IVC and aorta are grossly unremarkable. IMPRESSION: 1. Liver measures 17 cm in length with changes of the parenchyma suggesting steatosis. 2. Cholelithiasis with thickened gallbladder wall and mildly dilated common bile duct. Negative ultra sound marques's sign. HS:Y
[2025-06-02 01:00] VITALS: BP 99/61; PULSE 65; RESP 18; TEMP 98.4; O2SAT 96
[2025-06-02 05:00] VITALS: BP 96/59; PULSE 47; RESP 19; TEMP 97; O2SAT 98
[2025-06-02 05:58] LABS: Hematocrit 42.7 % (41.0-53.0); Hemoglobin 14.5 g/dL (13.5-17.5); Mean Corpuscular Hemoglobin 29.6 pg (28.0-32.0); Mean Corpuscular Volume 87.5 fL (80.0-100.0); Nucleated Red Blood Cells % 0.2 %
[2025-06-02 06:06] LABS: Albumin 3.7 g/dL (3.2-4.8); Anion Gap 11 (5-15); BUN/Creatinine Ratio 17.4 (10.0-20.0); Blood Urea Nitrogen 12 mg/dL (9-23); Calcium 9.3 mg/dL (8.7-10.4); Carbon Dioxide 23 mmol/L (20-31); Chloride 102 mmol/L (98-107); Potassium 3.7 mmol/L (3.5-5.1); Total Protein 7.0 g/dL (5.7-8.2)
[2025-06-02 06:09] LABS: Alanine Aminotransferase 59 U/L (7-40); Alkaline Phosphatase 270 U/L (46-116); Bilirubin, Total 7.6 mg/dL (0.2-1.0); Glucose 114 mg/dL (74-106); Sodium 136 mmol/L (136-145)
[2025-06-02 08:00] VITALS: PULSE 48; RESP 12; O2SAT 98
--- NOTE | 2025-06-02 11:26 | DVHPN2 ---
Reviewed: Care Plan, H&P, Labs, Medications, Previous Orders, Radiology Changes from previous H/P or p: No Changes General: Per HPI Eyes: No Pain, No Vision change, No Conjunctivae inflammation, No Eyelid inflammation, No Other, No Redness ENT: No Ear pain, No Ear discharge, No Nose pain, No Nose discharge, No Nose congestion, No Mouth pain, No Mouth swelling, No Throat pain, No Throat swelling, No Other Cardiovascular: No Chest Pain, No Palpitations, No Orthopnea, No Paroxysmal Noc. Dyspnea, No Edema, No Lt Headedness, No Other Respiratory: No Cough, No Dry, No Shortness of breath, No SOB with excertion, No Wheezing, No Hemoptysis, No Pleuritic Pain, No Sputum, No Other Gastrointestinal: No Nausea, No Vomiting; Abdominal Pain; No Diarrhea, No Constipation, No Melena, No Hematochezia, No Other Genitourinary: No Dysuria, No Frequency, No Incontinence, No Hematuria, No Retention, No Other Musculoskeletal: No other, No neck pain, No shoulder pain, No arm pain, No back pain, No hand pain, No leg pain, No foot pain Skin: No Rash, No Lesions; Jaundice; No Bruising, No Other Objective Vitals Vital Signs Date Time Temp Pulse Resp B/P (MAP) Pulse Ox O2 Delivery O2 Flow Rate FiO2 06/02/25 08:02 55 06/02/25 08:00 97.9 12 108/65 (79) 98 97.9 06/02/25 08:00 Room Air* 0 21 General Appearance: Alert, Oriented X3, Cooperative Cardiovascular: Regular rate, Normal S1, Normal S2 Medications Current Medications Medications Dose Ordered Sig/Jennifer Route Start Time Stop Time Status Last Admin Dose Admin Diagnostic Test (Pha) 1 strip ACHS 06/01/25 22:00 06/02/25 08:00 1 STRIP Insulin Human Regular ACHS SC 06/01/25 22:00 Dextrose 50 ml UD PRN IV 06/01/25 22:00 Sodium Chloride 1,000 ml @ 60 mls/hr [id number] IV 06/01/25 22:00 06/01/25 22:52 60 MLS/HR Acetaminophen/ Hydrocodone Bitart 1 tab Q4HP PRN PO 06/01/25 22:00 Ondansetron HCl 4 mg Q4HP PRN IV 06/01/25 22:00 Docusate Sodium 100 mg BIDPRN PRN PO 06/01/25 22:00 Ibuprofen 400 mg Q6HP PRN PO 06/01/25 22:00 Nitroglycerin 0.4 mg Q5MINP PRN SL 06/01/25 22:30 Morphine Sulfate 2 mg Q30M PRN IV 06/01/25 22:30 Laboratory Results Laboratory Tests 06/02/25 04:13 Chemistry Test 06/01/25 19:12 06/02/25 04:13 Albumin 4.1 g/dL (3.2-4.8) 3.7 g/dL (3.2-4.8) Calcium Level 10.0 mg/dL (8.7-10.4) 9.3 mg/dL (8.7-10.4) Total Protein 7.6 g/dL (5.7-8.2) 7.0 g/dL (5.7-8.2) Lipid panel Test 06/01/25 19:12 Lipase 20 U/L (12-53) LFT Test 06/01/25 19:12 06/02/25 04:13 Alanine Aminotransferase (ALT) 66 U/L (7-40) H 59 U/L (7-40) H Alkaline Phosphatase 325 U/L (46-116) H 270 U/L (46-116) H Aspartate Amino Transferase (AST) 70 U/L (13-40) H 65 U/L (13-40) H Total Bilirubin 9.0 mg/dL (0.2-1.0) H 7.6 mg/dL (0.2-1.0) H Urinalysis Test 06/01/25 19:05 Urine Color Dark-yellow (Yellow) Urine Clarity Clear (Clear) Urine pH 5.5 (5.0-9.0) Urine Specific [place] 1.024 (1.001-1.035) Urine Protein Trace (Negative) H Urine Ketones Negative (Negative) Urine Blood Negative /uL (Negative) Urine Nitrite Negative (Negative) Urine Bilirubin 1+ (Negative) Urine Urobilinogen 2 mg/dL (Negative) H Urine Leukocyte Esterase Negative /uL (Negative) Urine RBC 5 /hpf (0 - 3) Urine Microscopic WBC 1 /HPF (0-3) Urine Squamous Epithelial Cells Few /hpf (<5) Urine Calcium Oxalate Crystals Mod (None Seen) Urine Bacteria None seen /hpf (None Seen) Urine Mucus Few (None Seen) Urine Glucose Normal mg/dL (Normal) Labs and/or images reviewed: Labs reviewed by me, Image(s) reviewed by me Assessment/Plan Assessment/Plan The patient is a 45-year-old male with past medical history of DM, pancreatic cancer with Mets to the liver, and kidney disease who presented to [facility] ED with complaint of abdominal pain. Patient reports he was recently diagnosed with pancreatic cancer with Mets to the liver at [facility] 1 week prior, he was transferred to [facility] for ERCP for hyperbilirubinemia. Patient has biliary stent placed and discharged from [facility] and given referral for oncologist at [facility] for further evaluation. He was at appointment today with oncology and was referred to ED for possible biliary stent blockage and placement with IR. Patient was seen and evaluated in the ED appears yellow in appearance with complaint of severe itching, abdominal pain, and insomnia due to the pain, has been taking cholestyramine but states it has not been helping. Laboratory data shows WBC 8.7, platelets 430, sodium 137, potassium 4.6, BUN 13, creatinine 0.89, glucose 120, calcium 10.0, lipase 20, troponin four, AST 70, ALT 66, alkaline phos 325, total bilirubin 9.0, blood pressure 120/72, heart rate 56, temperature 98.3 F, O2 saturation 96% on room air. Abdomen/pelvis CT revealing common bile duct stent in good position, gallbladder wall thickening at approximately 7 mm, no calcified gallstone is identified. Single organ ultrasound revealing liver measures 17 cm in length with changes of the parenchyma suggesting steatosis. Please see medication orders section in the computer. On my assessment, at bedside, patient denied chest pain, no headache, no dizziness, no diaphoresis, no shortness of breath, no nausea, no vomiting, no fever, no chills. Patient was admitted for further evaluation and medical management. CT abd indicates Numerous hypodense masses within the liver, the largest of which measures 1.9 cm in the right liver dome. This is primarily concerning for metastatic disease. Note that evaluation is suboptimal in the absence of intravenous contrast. Common bile duct stent in good position. Fullness of the pancreatic head with atrophy of the pancreatic body and tail. Suboptimally evaluated in the absence of intravenous contrast. No renal, ureteral, or bladder calculus. No hydronephrosis of either kidney. Gallbladder wall thickening at approximately 7 mm. No calcified gallstone is identified. Consider right upper quadrant ultrasound if clinically indicated. Moderate colonic stool burden. Correlate clinically for constipation. Subtle edema within the retroperitoneum and small bowel mesentery inferior to the pancreas. Correlate clinically with serum lipase for possible pancreatitis. Acute abdominal pain Metastatic disease Pancreatic mass Hyperbilirubinemia Elevated liver enzymes Generalized weakness ascites 06/02/25 pending paracentesis. radiology consulted Plan discussed with: Patient Date of Service: Jun 02, 2025 Billing Provider: BLAYNE CHAMBERS DO Common Visit Codes: [id number] INP/OBS CARE(HIGH) BLAYNE CHAMBERS DO Jun 02, 2025 11:26
--- NOTE | 2025-06-02 12:34 | DVHINCON2 ---
GI Consult Consult Note GI consult note Date of Consultation: 06/02/2025 Chief Complaint: Elevated LFTs Referring Physician: Darrick MATHEWS H&P: 45-year-old male with past medical history of DM, pancreatic cancer with Mets to the liver, kidney disease presented to the ER with abdominal pain. Patient recently diagnosed with pancreatic cancer with Mets to the liver, one-week ago, when patient was at [facility] and transferred to higher level care at [facility] status post ER CP with stent placement. Patient was seen for with Oncology at [place], where he was recommended to present to ED due to elevated liver functions and possible blockage of his CBD stent Patient complains of slight abdominal pain. Occasional nausea. No vomiting or hematemesis Past Medical History: DM, Pancreatic cancer with Liver METS, Kidney disease Past Surgical History: ERCP with stent placement Social History: NO smoking, drinking ETOH and use of illegal drugs. Family History: Noncontributory Review of Systems: Constitutional: no fever, chill, weight loss HEENT: no eye pain, no hearing loss, no oral lesion, no scleral icterus Heart: no chest pain, no chest pressure Lung: no cough, no dyspnea with exertion Abdomen: see HPI Physical exam: General: NAD, AAOX3 HEENT: + scleral icterus Chest: lung peter clear to auscultation Heart: RRR, no murmur Abdomen: + left side abdominal tenderness to palpation, +BS Skin:+jaundice Labs: Labs Test 06/02/25 11:47 06/02/25 04:13 06/01/25 19:12 06/01/25 19:05 Range/Units POC Glucose 160 H 70-106 mg/dl White Blood Count 8.1 4.4-10.8 10^3/uL Red Blood Count 4.89 4.5-5.90 10^6/uL Hemoglobin 14.5 13.5-17.5 g/dL Hematocrit 42.7 41.0-53.0 % Mean Corpuscular Volume 87.5 80.0-100.0 fL Mean Corpuscular Hemoglobin 29.6 28.0-32.0 pg Mean Corpuscular Hemoglobin Concent 33.9 32.0-36.0 g/dL Red Cell Distribution Width 16.0 H 11.8-14.3 % Platelet Count 375 140-450 10^3/uL Mean Platelet Volume 9.1 6.9-10.8 fL Neutrophils (%) (Auto) 58.7 37.0-80.0 % Lymphocytes (%) (Auto) 31.6 10.0-50.0 % Monocytes (%) (Auto) 8.6 0.0-12.0 % Eosinophils (%) (Auto) 0.5 0.0-7.0 % Basophils (%) (Auto) 0.6 0.0-2.0 % Neutrophils # (Auto) 4.7 1.6-8.6 10 ^3/uL Lymphocytes # (Auto) 2.6 0.4-5.4 10 ^3/uL Monocytes # (Auto) 0.7 0-1.3 10 ^3/uL Eosinophils # (Auto) 0 0-0.8 10 ^3/uL Basophils # (Auto) 0.1 0-0.2 10 ^3/uL Nucleated Red Blood Cells 0.2 % Sodium Level 136 136-145 mmol/L Potassium Level 3.7 3.5-5.1 mmol/L Chloride Level 102 98-107 mmol/L Carbon Dioxide Level 23 20-31 mmol/L Anion Gap 11 5-15 Blood Urea Nitrogen 12 9-23 mg/dL Creatinine 0.69 L 0.700-1.30 mg/dL Glomerular Filtration Rate Calc 115 >90 mL/min BUN/Creatinine Ratio 17.4 10.0-20.0 Serum Glucose 114 H 74-106 mg/dL Calcium Level 9.3 8.7-10.4 mg/dL Total Bilirubin 7.6 H 0.2-1.0 mg/dL Aspartate Amino Transferase (AST) 65 H 13-40 U/L Alanine Aminotransferase (ALT) 59 H 7-40 U/L Alkaline Phosphatase 270 H 46-116 U/L Total Protein 7.0 5.7-8.2 g/dL Albumin 3.7 3.2-4.8 g/dL Lactic Acid Level 1.0 0.4-2.0 mmol/L Troponin I High Sensitivity 4 </=54 ng/L Lipase 20 12-53 U/L Urine Color Dark-yellow Yellow Urine Clarity Clear Clear Urine pH 5.5 5.0-9.0 Urine Specific [place] 1.024 1.001-1.035 Urine Protein Trace H Negative Urine Ketones Negative Negative Urine Blood Negative Negative /uL Urine Nitrite Negative Negative Urine Bilirubin 1+ Negative Urine Urobilinogen 2 H Negative mg/dL Urine Leukocyte Esterase Negative Negative /uL Urine RBC 5 0 - 3 /hpf Urine Microscopic WBC 1 0-3 /HPF Urine Squamous Epithelial Cells Few <5 /hpf Urine Calcium Oxalate Crystals Mod None Seen Urine Bacteria None seen None Seen /hpf Urine Mucus Few None Seen Urine Glucose Normal Normal mg/dL Imaging: CT abdomen pelvis IMPRESSION: Numerous hypodense masses within the liver, the largest of which measures 1.9 cm in the right liver dome. This is primarily concerning for metastatic disease. Note that evaluation is suboptimal in the absence of intravenous contrast. Common bile duct stent in good position. Fullness of the pancreatic head with atrophy of the pancreatic body and tail. Suboptimally evaluated in the absence of intravenous contrast. No renal, ureteral, or bladder calculus. No hydronephrosis of either kidney. Gallbladder wall thickening at approximately 7 mm. No calcified gallstone is identified. Consider right upper quadrant ultrasound if clinically indicated. Moderate colonic stool burden. Correlate clinically for constipation. Subtle edema within the retroperitoneum and small bowel mesentery inferior to the pancreas. Correlate clinically with serum lipase for possible pancreatitis. Abdominal ultrasound IMPRESSION: 1. Liver measures 17 cm in length with changes of the parenchyma suggesting steatosis. 2. Cholelithiasis with thickened gallbladder wall and mildly dilated common bile duct. Negative ultrasound marques's sign. Assessment: Abdominal pain Pancreatic cancer with liver Mets Elevated LFT Status post ERCP with CBD stent placement Plan: Discussed with Dr. Laird IR consult for possible evaluation of biliary obstruction of CBD stent Monitor labs Continue supportive care We will continue to monitor patient Plan discussed with patient and RN Thank you for this consult Date of Service: Jun 02, 2025 Billing Provider: CARLOS YANG Common Visit Codes: CONSULT ONLY Consultation Codes: [id number] CONSULT <60MIN CARLOS YANG Jun 02, 2025 12:34
[2025-06-02 17:00] VITALS: BP 105/61; PULSE 46; RESP 12; O2SAT 99
--- NOTE | 2025-06-02 18:01 | DVH ---
PROCEDURE: MRI MRCP MRI Indication: RULE OUT BILIARY DILATION COMPARISON: 06/01/2025 TECHNIQUE: Multiplanar multisequence images of the abdomen are obtianed per MRCP protocol. FINDINGS: Examination degraded by motion. Cholelithiasis. Pericholecystic/ gallbladder wall edema. CBD is normal in caliber measuring approxim ately 4 mm. No significant intrahepatic duct dilatation. Kidneys demonstrate no hydronephrosis. Spleen unremarkable. Adrenal glands unremarkable. Pancreatic ductal dilatation up to 7 mm. There is a heterogeneous T2 bright mass within the pancreat ic head region measuring 4.1 x 2.7 cm. There is edema surrounding the duodenum and pancreatic head. m numerous T2 bright lesions within the liver parenchyma consistent with metastatic disease, likely m ucinous metastatic disease. Greater than 15 lesions present. Some of the larger lesions include right hepatic lobe lesions measuring 1.9 cm, 1.1 cm, 1.5 cm, 1.5 cm, 1.6 cm, 1.6 cm and left hepatic lobe lesions measuring 2.3 cm, 0.9 cm. Stomach is partially distended. IMPRESSION: Pancreatic head mass measuring 4.1 x 2.7 cm consistent with pancreatic neoplasm. Recommend surgical/o ncology consultation for further evaluation Extensive hepatic metastatic disease, greater than 15 lesions throughout the hepatic parenchyma most pronounced within the right hepatic lobe. Edema and stranding surrounding the pancreatic head and duodenum which can be secondary to synchronou s pancreatitis, duodenitis. Cholelithiasis. No evidence for choledocholithiasis.
[2025-06-02 21:02] VITALS: BP 130/69; PULSE 54; RESP 12; TEMP 98.5; O2SAT 98
[2025-06-02 22:30] VITALS: BP 111/64; PULSE 51; RESP 16; TEMP 98.6; O2SAT 100
[2025-06-03] VITALS (9 sets, daily range): BP systolic 96–157; BP diastolic 58–118; PULSE 43–80; RESP 15–20; TEMP 97.6–98.5; O2SAT 98–100
[2025-06-03] MEDS ORDERED: METF-370 PO (09:57)
[2025-06-03] MEDS: ONDANSETRON HCL 4 MG/2 ML VIAL IV PRN (10:01)
--- NOTE | 2025-06-03 17:16 | DVHPN2 ---
Progress Note - Dictate Date Seen: Jun 03, 2025 Medical Necessity Reason Pt with a Central, PICC or Fol: No Subjective No new complaints Patient has mild abdominal pain and nausea Tolerating consistent carb diet Liver enzymes were trending down yesterday, no new hepatic panel today vital signs Vital Sign Date Time Temp Pulse Resp B/P (MAP) Pulse Ox O2 Delivery O2 Flow Rate FiO2 06/03/25 16:36 98.5 61 20 108/69 (82) 98 98.5 06/03/25 08:00 Room Air* 0 N/A Nasal Cannula* medications Current Medications Medications Dose Ordered Sig/Jennifer Route Start Time Stop Time Status Last Admin Dose Admin Diagnostic Test (Pha) 1 strip ACHS 06/01/25 22:00 06/03/25 16:34 1 STRIP Insulin Human Regular ACHS SC 06/01/25 22:00 06/02/25 21:53 3 UNITS Dextrose 50 ml UD PRN IV 06/01/25 22:00 Sodium Chloride 1,000 ml @ 60 mls/hr [id number] IV 06/01/25 22:00 06/03/25 07:20 60 MLS/HR Acetaminophen/ Hydrocodone Bitart 1 tab Q4HP PRN PO 06/01/25 22:00 Ondansetron HCl 4 mg Q4HP PRN IV 06/01/25 22:00 06/03/25 10:01 4 MG Docusate Sodium 100 mg BIDPRN PRN PO 06/01/25 22:00 Ibuprofen 400 mg Q6HP PRN PO 06/01/25 22:00 Nitroglycerin 0.4 mg Q5MINP PRN SL 06/01/25 22:30 Morphine Sulfate 2 mg Q30M PRN IV 06/01/25 22:30 objective General: NAD, AAOX3 HEENT: + scleral icterus Chest: lung peter clear to auscultation Heart: RRR, no murmur Abdomen: + left side abdominal tenderness to palpation, +BS Skin:+jaundice laboratory and microbiology Laboratory Tests 06/02/25 04:13 Test 06/02/25 04:13 Range/Units Serum Glucose 114 H 74-106 mg/dL MRCP IMPRESSION: Pancreatic head mass measuring 4.1 x 2.7 cm consistent with pancreatic neoplasm. Recommend surgical/oncology consultation for further evaluation Extensive hepatic metastatic disease, greater than 15 lesions throughout the hepatic parenchyma most pronounced within the right hepatic lobe. Edema and stranding surrounding the pancreatic head and duodenum which can be secondary to synchronous pancreatitis, duodenitis. Cholelithiasis. No evidence for choledocholithiasis. Problems(with codes): (1) Elevated liver enzymes (2) Generalized weakness (3) Acute abdominal pain (4) Metastatic disease (5) Pancreatic mass (6) Hyperbilirubinemia (7) Abnormal liver ultrasound Prognosis Assessment and plan I discussed the case with the radiologist yesterday As there was no evidence of biliary ductal dilatation the radiologist does not recommend any other external biliary drain His common bile duct stent appears to be in place and currently is not obstructed with any CBD stone Patient has elevated liver enzymes or also related to multiple hepatic metastases with areas of micro obstruction and the pancreatic head mass Pain control, monitor labs, discharge planning if stable , no evidence of pancreatitis at this time. Lipase is normal Patient needs to follow up with his oncologist next week to see if the patient is a candidate for any possible chemotherapy or immunotherapy Plan discussed with: Patient, Other (Interventional radiologist) LUPE RODRIGES MD Jun 03, 2025 17:16
--- NOTE | 2025-06-03 19:49 | DVHPN2 ---
Reviewed: Care Plan, H&P, Labs, Medications, Previous Orders, Radiology Changes from previous H/P or p: No Changes General: Per HPI Eyes: No Pain, No Vision change, No Conjunctivae inflammation, No Eyelid inflammation, No Other, No Redness ENT: No Ear pain, No Ear discharge, No Nose pain, No Nose discharge, No Nose congestion, No Mouth pain, No Mouth swelling, No Throat pain, No Throat swelling, No Other Cardiovascular: No Chest Pain, No Palpitations, No Orthopnea, No Paroxysmal Noc. Dyspnea, No Edema, No Lt Headedness, No Other Respiratory: No Cough, No Dry, No Shortness of breath, No SOB with excertion, No Wheezing, No Hemoptysis, No Pleuritic Pain, No Sputum, No Other Gastrointestinal: No Nausea, No Vomiting; Abdominal Pain; No Diarrhea, No Constipation, No Melena, No Hematochezia, No Other Genitourinary: No Dysuria, No Frequency, No Incontinence, No Hematuria, No Retention, No Other Musculoskeletal: No other, No neck pain, No shoulder pain, No arm pain, No back pain, No hand pain, No leg pain, No foot pain Skin: No Rash, No Lesions; Jaundice; No Bruising, No Other Objective Vitals Vital Signs Date Time Temp Pulse Resp B/P (MAP) Pulse Ox O2 Delivery O2 Flow Rate FiO2 06/03/25 16:36 98.5 61 20 108/69 (82) 98 98.5 06/03/25 08:00 Room Air* 0 N/A Nasal Cannula* General Appearance: Alert, Oriented X3, Cooperative Cardiovascular: Regular rate, Normal S1, Normal S2 Neuro: Normal gait, Normal speech Medications Current Medications Medications Dose Ordered Sig/Jennifer Route Start Time Stop Time Status Last Admin Dose Admin Diagnostic Test (Pha) 1 strip ACHS 06/01/25 22:00 06/03/25 16:34 1 STRIP Insulin Human Regular ACHS SC 06/01/25 22:00 06/02/25 21:53 3 UNITS Dextrose 50 ml UD PRN IV 06/01/25 22:00 Sodium Chloride 1,000 ml @ 60 mls/hr [id number] IV 06/01/25 22:00 06/03/25 07:20 60 MLS/HR Acetaminophen/ Hydrocodone Bitart 1 tab Q4HP PRN PO 06/01/25 22:00 Ondansetron HCl 4 mg Q4HP PRN IV 06/01/25 22:00 06/03/25 10:01 4 MG Docusate Sodium 100 mg BIDPRN PRN PO 06/01/25 22:00 Ibuprofen 400 mg Q6HP PRN PO 06/01/25 22:00 Nitroglycerin 0.4 mg Q5MINP PRN SL 06/01/25 22:30 Morphine Sulfate 2 mg Q30M PRN IV 06/01/25 22:30 Laboratory Results Laboratory Tests 06/02/25 04:13 Urinalysis Test 06/01/25 19:05 Urine Color Dark-yellow (Yellow) Urine Clarity Clear (Clear) Urine pH 5.5 (5.0-9.0) Urine Specific [place] 1.024 (1.001-1.035) Urine Protein Trace (Negative) H Urine Ketones Negative (Negative) Urine Blood Negative /uL (Negative) Urine Nitrite Negative (Negative) Urine Bilirubin 1+ (Negative) Urine Urobilinogen 2 mg/dL (Negative) H Urine Leukocyte Esterase Negative /uL (Negative) Urine RBC 5 /hpf (0 - 3) Urine Microscopic WBC 1 /HPF (0-3) Urine Squamous Epithelial Cells Few /hpf (<5) Urine Calcium Oxalate Crystals Mod (None Seen) Urine Bacteria None seen /hpf (None Seen) Urine Mucus Few (None Seen) Urine Glucose Normal mg/dL (Normal) Microbiology Microbiology Date/Time Source Procedure Growth Status 06/02/25 23:38 Nose MRSA Screen - Final Complete Labs and/or images reviewed: Labs reviewed by me, Image(s) reviewed by me Assessment/Plan Assessment/Plan The patient is a 45-year-old male with past medical history of DM, pancreatic cancer with Mets to the liver, and kidney disease who presented to [facility] ED with complaint of abdominal pain. Patient reports he was recently diagnosed with pancreatic cancer with Mets to the liver at [facility] 1 week prior, he was transferred to [facility] for ERCP for hyperbilirubinemia. Patient has biliary stent placed and discharged from [place] and given referral for oncologist at [facility] for further evaluation. He was at appointment today with oncology and was referred to ED for possible biliary stent blockage and placement with IR. Patient was seen and evaluated in the ED appears yellow in appearance with complaint of severe itching, abdominal pain, and insomnia due to the pain, has been taking cholestyramine but states it has not been helping. Laboratory data shows WBC 8.7, platelets 430, sodium 137, potassium 4.6, BUN 13, creatinine 0.89, glucose 120, calcium 10.0, lipase 20, troponin four, AST 70, ALT 66, alkaline phos 325, total bilirubin 9.0, blood pressure 120/72, heart rate 56, temperature 98.3 F, O2 saturation 96% on room air. Abdomen/pelvis CT revealing common bile duct stent in good position, gallbladder wall thickening at approximately 7 mm, no calcified gallstone is identified. Single organ ultrasound revealing liver measures 17 cm in length with changes of the parenchyma suggesting steatosis. Please see medication orders section in the computer. On my assessment, at bedside, patient denied chest pain, no headache, no dizziness, no diaphoresis, no shortness of breath, no nausea, no vomiting, no fever, no chills. Patient was admitted for further evaluation and medical management. CT abd indicates Numerous hypodense masses within the liver, the largest of which measures 1.9 cm in the right liver dome. This is primarily concerning for metastatic disease. Note that evaluation is suboptimal in the absence of intravenous contrast. Common bile duct stent in good position. Fullness of the pancreatic head with atrophy of the pancreatic body and tail. Suboptimally evaluated in the absence of intravenous contrast. No renal, ureteral, or bladder calculus. No hydronephrosis of either kidney. Gallbladder wall thickening at approximately 7 mm. No calcified gallstone is identified. Consider right upper quadrant ultrasound if clinically indicated. Moderate colonic stool burden. Correlate clinically for constipation. Subtle edema within the retroperitoneum and small bowel mesentery inferior to the pancreas. Correlate clinically with serum lipase for possible pancreatitis. Acute abdominal pain Metastatic disease Pancreatic mass Hyperbilirubinemia Elevated liver enzymes Generalized weakness ascites Plan discussed with: Patient Date of Service: Jun 03, 2025 Billing Provider: BLAYNE CHAMBERS DO Common Visit Codes: [id number] INP/OBS CARE(HIGH) BLAYNE CHAMBERS DO Jun 03, 2025 19:49
[2025-06-04] VITALS (8 sets, daily range): BP systolic 95–115; BP diastolic 62–75; PULSE 43–102; RESP 16–19; TEMP 97.6–98.3; O2SAT 98–100
[2025-06-04 06:32] LABS: Hematocrit 41.6 % (41.0-53.0); Hemoglobin 14.3 g/dL (13.5-17.5); Mean Corpuscular Hemoglobin 30.3 pg (28.0-32.0); Mean Corpuscular Volume 87.9 fL (80.0-100.0); Nucleated Red Blood Cells % 0.1 %
[2025-06-04 06:44] LABS: INR 1.17 (0.9-1.15); Prothrombin Time 12.2 sec (9.3-11.8)
[2025-06-04 06:53] LABS: Albumin 3.9 g/dL (3.2-4.8); Anion Gap 8 (5-15); BUN/Creatinine Ratio 16.3 (10.0-20.0); Blood Urea Nitrogen 13 mg/dL (9-23); Calcium 9.9 mg/dL (8.7-10.4); Carbon Dioxide 27 mmol/L (20-31); Chloride 103 mmol/L (98-107); Potassium 4.1 mmol/L (3.5-5.1); Sodium 138 mmol/L (136-145); Total Protein 7.3 g/dL (5.7-8.2)
[2025-06-04 06:54] LABS: Alanine Aminotransferase 100 U/L (7-40); Alkaline Phosphatase 242 U/L (46-116); Bilirubin, Total 6.3 mg/dL (0.2-1.0); Glucose 121 mg/dL (74-106)
[2025-06-04 07:12] LABS: Lipase 20 U/L (12-53)
[2025-06-04] MEDS: IBUPROFEN 400 MG TAB PO PRN (15:18)
[2025-06-05] VITALS (8 sets, daily range): BP systolic 103–130; BP diastolic 57–82; PULSE 43–71; RESP 15–20; TEMP 97.6–98.6; O2SAT 97–100
--- NOTE | 2025-06-05 18:54 | DVHPN2 ---
Progress Note - Dictate Date Seen: Jun 05, 2025 Medical Necessity Reason Pt with a Central, PICC or Fol: No Subjective No new complaints Patient has mild abdominal pain and nausea Tolerating consistent carb diet; patient is moving his bowels Liver enzymes were trending down yesterday, no new hepatic panel today vital signs Vital Sign Date Time Temp Pulse Resp B/P (MAP) Pulse Ox O2 Delivery O2 Flow Rate FiO2 06/05/25 17:00 98.4 47 16 130/82 (98) 99 98.4 06/05/25 08:00 Room Air* 0 21 Total Intake and Output 06/04/25 06/04/25 06/05/25 15:00 23:00 07:00 Intake Total 120 ml 1310 ml 750 ml Balance 120 ml 1310 ml 750 ml medications Current Medications Medications Dose Ordered Sig/Jennifer Route Start Time Stop Time Status Last Admin Dose Admin Diagnostic Test (Pha) 1 strip ACHS 06/01/25 22:00 06/05/25 16:40 1 STRIP Insulin Human Regular ACHS SC 06/01/25 22:00 06/05/25 11:10 3 UNITS Dextrose 50 ml UD PRN IV 06/01/25 22:00 Sodium Chloride 1,000 ml @ 60 mls/hr [id number] IV 06/01/25 22:00 06/05/25 11:08 60 MLS/HR Acetaminophen/ Hydrocodone Bitart 1 tab Q4HP PRN PO 06/01/25 22:00 Ondansetron HCl 4 mg Q4HP PRN IV 06/01/25 22:00 06/03/25 10:01 4 MG Docusate Sodium 100 mg BIDPRN PRN PO 06/01/25 22:00 Ibuprofen 400 mg Q6HP PRN PO 06/01/25 22:00 06/04/25 15:18 400 MG Nitroglycerin 0.4 mg Q5MINP PRN SL 06/01/25 22:30 Morphine Sulfate 2 mg Q30M PRN IV 06/01/25 22:30 objective General: NAD, AAOX3 HEENT: + scleral icterus Chest: lung peter clear to auscultation Heart: RRR, no murmur Abdomen: + left side abdominal tenderness to palpation, +BS Skin:+jaundice laboratory and microbiology Laboratory Tests 06/04/25 04:39 Test 06/04/25 04:39 Range/Units Serum Glucose 121 H 74-106 mg/dL Problems(with codes): (1) Abnormal liver ultrasound (2) Elevated liver enzymes (3) Generalized weakness (4) Metastatic disease (5) Pancreatic mass (6) Hyperbilirubinemia Prognosis Plan I have reviewed radiology notes and discussed with the radiologist As there was no evidence of biliary ductal dilatation the radiologist does not recommend any other external biliary drain His common bile duct stent appears to be in place and currently is not obstructed with any CBD stone Patient has elevated liver enzymes or also related to multiple hepatic metastases with areas of micro obstruction and the pancreatic head mass Pain control, monitor labs, discharge planning if stable , no evidence of pancreatitis at this time. Lipase is normal Patient needs to follow up with his oncologist next week to see if the patient is a candidate for any possible chemotherapy or immunotherapy Dietary Evaluation Review Comments: 1) CCHO 75gm diet 2) Glucerna 240ml TID 3) Continue current POC Expected Outcomes/Goals: To maintain/gain weight intake to meet t least 75% estimated needs fu 3-5 days Plan discussed with: Other (Radiologist) LUPE RODRIGES MD Jun 05, 2025 18:54
[2025-06-06 01:00] VITALS: BP 114/74; PULSE 45; RESP 18; TEMP 98.3; O2SAT 99
[2025-06-06 05:00] VITALS: BP 112/72; PULSE 43; RESP 19; TEMP 97.9; O2SAT 98
[2025-06-06 06:47] LABS: Anion Gap 11 (5-15); BUN/Creatinine Ratio 14.5 (10.0-20.0); Blood Urea Nitrogen 10 mg/dL (9-23); Calcium 9.7 mg/dL (8.7-10.4); Carbon Dioxide 25 mmol/L (20-31); Chloride 103 mmol/L (98-107); Potassium 3.6 mmol/L (3.5-5.1); Sodium 139 mmol/L (136-145); Total Protein 6.8 g/dL (5.7-8.2)
[2025-06-06 06:49] LABS: Albumin 3.6 g/dL (3.2-4.8)
[2025-06-06 06:51] LABS: Alanine Aminotransferase 97 U/L (7-40); Alkaline Phosphatase 202 U/L (46-116); Bilirubin, Total 5.2 mg/dL (0.2-1.0); Glucose 108 mg/dL (74-106)
[2025-06-06 08:00] VITALS: PULSE 43
[2025-06-06 08:21] VITALS: PULSE 43; RESP 17; O2SAT 98
[2025-06-06 08:34] VITALS: PULSE 43
[2025-06-06 08:47] VITALS: BP 100/63; PULSE 43; RESP 17; TEMP 98.1; O2SAT 98
--- NOTE | 2025-06-06 11:24 | DVH ---
ULTRASOUND ABDOMEN limited, 4 QUADRANTS INDICATION: FLUID CHECK FOR POSSIBLE PARACENTESIS Evaluate for ascites. TECHNIQUE: The four quadrants of the abdomen were scanned in miramontes-scale to assess for the presence of ascites. N o solid organ assessment was performed. FINDINGS: No ascites. IMPRESSION: No ascites.
--- NOTE | 2025-06-12 09:32 | DVHPN2 ---
Reviewed: Care Plan, H&P, Labs, Medications, Previous Orders, Radiology Changes from previous H/P or p: No Changes General: Per HPI Eyes: No Pain, No Vision change, No Conjunctivae inflammation, No Eyelid inflammation, No Other, No Redness ENT: No Ear pain, No Ear discharge, No Nose pain, No Nose discharge, No Nose congestion, No Mouth pain, No Mouth swelling, No Throat pain, No Throat swelling, No Other Cardiovascular: No Chest Pain, No Palpitations, No Orthopnea, No Paroxysmal Noc. Dyspnea, No Edema, No Lt Headedness, No Other Respiratory: No Cough, No Dry, No Shortness of breath, No SOB with excertion, No Wheezing, No Hemoptysis, No Pleuritic Pain, No Sputum, No Other Gastrointestinal: No Nausea, No Vomiting; Abdominal Pain; No Diarrhea, No Constipation, No Melena, No Hematochezia, No Other Genitourinary: No Dysuria, No Frequency, No Incontinence, No Hematuria, No Retention, No Other Musculoskeletal: No other, No neck pain, No shoulder pain, No arm pain, No back pain, No hand pain, No leg pain, No foot pain Skin: No Rash, No Lesions; Jaundice; No Bruising, No Other Objective General Appearance: Alert, Oriented X3, Cooperative Cardiovascular: Regular rate, Normal S1, Normal S2 Neuro: Normal gait, Normal speech Laboratory Results Laboratory Tests 06/04/25 04:39 06/06/25 05:46 Urinalysis Test 06/01/25 19:05 Urine Color Dark-yellow (Yellow) Urine Clarity Clear (Clear) Urine pH 5.5 (5.0-9.0) Urine Specific [place] 1.024 (1.001-1.035) Urine Protein Trace (Negative) H Urine Ketones Negative (Negative) Urine Blood Negative /uL (Negative) Urine Nitrite Negative (Negative) Urine Bilirubin 1+ (Negative) Urine Urobilinogen 2 mg/dL (Negative) H Urine Leukocyte Esterase Negative /uL (Negative) Urine RBC 5 /hpf (0 - 3) Urine Microscopic WBC 1 /HPF (0-3) Urine Squamous Epithelial Cells Few /hpf (<5) Urine Calcium Oxalate Crystals Mod (None Seen) Urine Bacteria None seen /hpf (None Seen) Urine Mucus Few (None Seen) Urine Glucose Normal mg/dL (Normal) Microbiology Microbiology Date/Time Source Procedure Growth Status 06/02/25 23:38 Nose MRSA Screen - Final Complete Labs and/or images reviewed: Labs reviewed by me, Image(s) reviewed by me Assessment/Plan Assessment/Plan Acute abdominal pain Metastatic disease Pancreatic mass Hyperbilirubinemia Elevated liver enzymes Generalized weakness ascites Plan discussed with: Patient Date of Service: Jun 05, 2025 Billing Provider: BLAYNE CHAMBERS DO Common Visit Codes: [id number] INP/OBS CARE(HIGH) BLAYNE CHAMBERS DO Jun 12, 2025 09:32
--- NOTE | 2025-06-12 09:32 | DVHPN2 ---
Reviewed: Care Plan, H&P, Labs, Medications, Previous Orders, Radiology Changes from previous H/P or p: No Changes General: Per HPI Eyes: No Pain, No Vision change, No Conjunctivae inflammation, No Eyelid inflammation, No Other, No Redness ENT: No Ear pain, No Ear discharge, No Nose pain, No Nose discharge, No Nose congestion, No Mouth pain, No Mouth swelling, No Throat pain, No Throat swelling, No Other Cardiovascular: No Chest Pain, No Palpitations, No Orthopnea, No Paroxysmal Noc. Dyspnea, No Edema, No Lt Headedness, No Other Respiratory: No Cough, No Dry, No Shortness of breath, No SOB with excertion, No Wheezing, No Hemoptysis, No Pleuritic Pain, No Sputum, No Other Gastrointestinal: No Nausea, No Vomiting; Abdominal Pain; No Diarrhea, No Constipation, No Melena, No Hematochezia, No Other Genitourinary: No Dysuria, No Frequency, No Incontinence, No Hematuria, No Retention, No Other Musculoskeletal: No other, No neck pain, No shoulder pain, No arm pain, No back pain, No hand pain, No leg pain, No foot pain Skin: No Rash, No Lesions; Jaundice; No Bruising, No Other Objective General Appearance: Alert, Oriented X3, Cooperative Cardiovascular: Regular rate, Normal S1, Normal S2 Neuro: Normal gait, Normal speech Laboratory Results Laboratory Tests 06/04/25 04:39 06/06/25 05:46 Urinalysis Test 06/01/25 19:05 Urine Color Dark-yellow (Yellow) Urine Clarity Clear (Clear) Urine pH 5.5 (5.0-9.0) Urine Specific [place] 1.024 (1.001-1.035) Urine Protein Trace (Negative) H Urine Ketones Negative (Negative) Urine Blood Negative /uL (Negative) Urine Nitrite Negative (Negative) Urine Bilirubin 1+ (Negative) Urine Urobilinogen 2 mg/dL (Negative) H Urine Leukocyte Esterase Negative /uL (Negative) Urine RBC 5 /hpf (0 - 3) Urine Microscopic WBC 1 /HPF (0-3) Urine Squamous Epithelial Cells Few /hpf (<5) Urine Calcium Oxalate Crystals Mod (None Seen) Urine Bacteria None seen /hpf (None Seen) Urine Mucus Few (None Seen) Urine Glucose Normal mg/dL (Normal) Microbiology Microbiology Date/Time Source Procedure Growth Status 06/02/25 23:38 Nose MRSA Screen - Final Complete Assessment/Plan Assessment/Plan The patient is a 45-year-old male with past medical history of DM, pancreatic cancer with Mets to the liver, and kidney disease who presented to [facility] ED with complaint of abdominal pain. Patient reports he was recently diagnosed with pancreatic cancer with Mets to the liver at [facility] 1 week prior, he was transferred to [facility] for ERCP for hyperbilirubinemia. Patient has biliary stent placed and discharged from [place] and given referral for oncologist at [facility] for further evaluation. He was at appointment today with oncology and was referred to ED for possible biliary stent blockage and placement with IR. Patient was seen and evaluated in the ED appears yellow in appearance with complaint of severe itching, abdominal pain, and insomnia due to the pain, has been taking cholestyramine but states it has not been helping. Laboratory data shows WBC 8.7, platelets 430, sodium 137, potassium 4.6, BUN 13, creatinine 0.89, glucose 120, calcium 10.0, lipase 20, troponin four, AST 70, ALT 66, alkaline phos 325, total bilirubin 9.0, blood pressure 120/72, heart rate 56, temperature 98.3 F, O2 saturation 96% on room air. Abdomen/pelvis CT revealing common bile duct stent in good position, gallbladder wall thickening at approximately 7 mm, no calcified gallstone is identified. Single organ ultrasound revealing liver measures 17 cm in length with changes of the parenchyma suggesting steatosis. Please see medication orders section in the computer. On my assessment, at bedside, patient denied chest pain, no headache, no dizziness, no diaphoresis, no shortness of breath, no nausea, no vomiting, no fever, no chills. Patient was admitted for further evaluation and medical management. CT abd indicates Numerous hypodense masses within the liver, the largest of which measures 1.9 cm in the right liver dome. This is primarily concerning for metastatic disease. Note that evaluation is suboptimal in the absence of intravenous contrast. Common bile duct stent in good position. Fullness of the pancreatic head with atrophy of the pancreatic body and tail. Suboptimally evaluated in the absence of intravenous contrast. No renal, ureteral, or bladder calculus. No hydronephrosis of either kidney. Gallbladder wall thickening at approximately 7 mm. No calcified gallstone is identified. Consider right upper quadrant ultrasound if clinically indicated. Moderate colonic stool burden. Correlate clinically for constipation. Subtle edema within the retroperitoneum and small bowel mesentery inferior to the pancreas. Correlate clinically with serum lipase for possible pancreatitis. Acute abdominal pain Metastatic disease Pancreatic mass Hyperbilirubinemia Elevated liver enzymes Generalized weakness ascites Plan discussed with: Patient Date of Service: Jun 04, 2025 Billing Provider: BLAYNE CHAMBERS DO Common Visit Codes: 87198-[id number] INP/OBS CARE(HIGH) BLAYNE CHAMBERS DO Jun 12, 2025 09:32
--- NOTE | 2025-06-12 09:33 | DVHDS2 ---
Discharge Summary Date of Admission Jun 01, 2025 at 22:28 Date of Discharge: Jun 06, 2025 Labs/Diagnostic Data: Laboratory Results Test 06/06/25 06:28 06/06/25 05:46 06/04/25 04:39 06/01/25 19:12 POC Glucose 116 mg/dl (70-106) Sodium Level 139 mmol/L (136-145) Potassium Level 3.6 mmol/L (3.5-5.1) Chloride Level 103 mmol/L (98-107) Carbon Dioxide Level 25 mmol/L (20-31) Anion Gap 11 (5-15) Blood Urea Nitrogen 10 mg/dL (9-23) Creatinine 0.69 mg/dL (0.700-1.30) Glomerular Filtration Rate Calc 115 mL/min (>90) BUN/Creatinine Ratio 14.5 (10.0-20.0) Serum Glucose 108 mg/dL (74-106) Calcium Level 9.7 mg/dL (8.7-10.4) Total Bilirubin 5.2 mg/dL (0.2-1.0) Aspartate Amino Transferase (AST) 79 U/L (13-40) Alanine Aminotransferase (ALT) 97 U/L (7-40) Alkaline Phosphatase 202 U/L (46-116) Total Protein 6.8 g/dL (5.7-8.2) Albumin 3.6 g/dL (3.2-4.8) White Blood Count 7.2 10^3/uL (4.4-10.8) Red Blood Count 4.73 10^6/uL (4.5-5.90) Hemoglobin 14.3 g/dL (13.5-17.5) Hematocrit 41.6 % (41.0-53.0) Mean Corpuscular Volume 87.9 fL (80.0-100.0) Mean Corpuscular Hemoglobin 30.3 pg (28.0-32.0) Mean Corpuscular Hemoglobin Concent 34.5 g/dL (32.0-36.0) Red Cell Distribution Width 15.2 % (11.8-14.3) Platelet Count 377 10^3/uL (140-450) Mean Platelet Volume 8.8 fL (6.9-10.8) Neutrophils (%) (Auto) 56.1 % (37.0-80.0) Lymphocytes (%) (Auto) 29.8 % (10.0-50.0) Monocytes (%) (Auto) 11.7 % (0.0-12.0) Eosinophils (%) (Auto) 1.5 % (0.0-7.0) Basophils (%) (Auto) 0.9 % (0.0-2.0) Neutrophils # (Auto) 4.0 10 ^3/uL (1.6-8.6) Lymphocytes # (Auto) 2.1 10 ^3/uL (0.4-5.4) Monocytes # (Auto) 0.8 10 ^3/uL (0-1.3) Eosinophils # (Auto) 0.1 10 ^3/uL (0-0.8) Basophils # (Auto) 0.1 10 ^3/uL (0-0.2) Nucleated Red Blood Cells 0.1 % Prothrombin Time 12.2 sec (9.3-11.8) Prothrombin Time INR 1.17 (0.9-1.15) Lipase 20 U/L (12-53) CA 19-9 Antigen 3681 U/mL (0-35) Lactic Acid Level 1.0 mmol/L (0.4-2.0) Troponin I High Sensitivity 4 ng/L (</=54) Test 06/01/25 19:05 Urine Color Dark-yellow (Yellow) Urine Clarity Clear (Clear) Urine pH 5.5 (5.0-9.0) Urine Specific [place] 1.024 (1.001-1.035) Urine Protein Trace (Negative) Urine Ketones Negative (Negative) Urine Blood Negative /uL (Negative) Urine Nitrite Negative (Negative) Urine Bilirubin 1+ (Negative) Urine Urobilinogen 2 mg/dL (Negative) Urine Leukocyte Esterase Negative /uL (Negative) Urine RBC 5 /hpf (0 - 3) Urine Microscopic WBC 1 /HPF (0-3) Urine Squamous Epithelial Cells Few /hpf (<5) Urine Calcium Oxalate Crystals Mod (None Seen) Urine Bacteria None seen /hpf (None Seen) Urine Mucus Few (None Seen) Urine Glucose Normal mg/dL (Normal) Other Laboratory Tests 06/06/25 05:46 06/04/25 04:39 Brief Hx & Hospital Course: pt left AMA Condition at Discharge: Fair Final Diagnosis/Problems List METASTATIC DISEASE Discharge Disposition: AMA Discharge Instruct/Medications Activity: No Restrictions, As Tolerated Scheduled Metformin Hydrochloride (Metformin Hcl), 1,000 MG PO BID, (Reported) Discharge Statement: "Patient was advised to return to the ER or call 911 if any headaches, dizziness, shortness of breath, chest pain, abdominal pain, bleeding, fevers, or worsening of medical condition. Patient was counseled about treatment plan, medications, possible side effects, patientverbalized understanding. All questions were answered to the best of my ability. This discharge took greater then 30 minutes in planning, reviewing documentation, counseling the patient, and discussing with other team members." ASSESSMENT ASSESSMENT Assessment METASTATIC DISEASE Date of Service: Jun 06, 2025 Billing Provider: BLAYNE CHAMBERS DO Common Visit Codes: 60004-NDY/OBS DISCH DAY >30min BLAYNE CHAMBERS DO Jun 12, 2025 09:33
== END 2025-06-06 08:35 | disposition left against medical advice (07) | DRG 281 ==
LOC: ER 18:42 → OVERFLOW 22:28 → TELE-WESTW 06-02 22:15
PROVIDERS: ADMIT Internal Medicine; ATTEND Internal Medicine
DX: C25.9 Malignant neoplasm of pancreas, unspecified (principal); C78.7 Secondary malignant neoplasm of liver and intrahepatic bile duct; E11.9 Type 2 diabetes mellitus without complications; K80.20 Calculus of gallbladder without cholecystitis without obstruction; G47.00 Insomnia, unspecified; R79.89 Other specified abnormal findings of blood chemistry; Z53.29 Procedure and treatment not carried out because of patient's decision for other reasons
CPT/HCPCS: 36415; 74176; 74181; 76705; 80053; 81001; 82962; 83605; 83690; 84484; 85025; 85610; 86301; 87081; 96361; 96374; G0378; J1815; J2405

== ENCOUNTER 2025-08-10 15:33 | Emergency (ER) | payer SELFPAY ==
[~2025-08-10] VITALS: Ht 167.6 cm; Wt 69.0 kg
[~2025-08-10 15:33] MED LIST: METF-370 PO
--- NOTE | 2025-08-10 16:11 | ED.PDOC ---
Musculoskeletal HPI Comments 45 y/o M, with PMHx of DM presents to the ED for CC of right lower extremity pain. Patient states, he has been experiencing right lower leg pain [id number]. Patient reports, he was sent by his PCP to the ED for further care. Patient denies chest pain, shortness of breath, swelling, redness, or discoloration. No other symptoms or modifying factors are present at this time. Vital signs were stable. Chief Complaint: Lower Extremity Time Seen by MD: 15:15 Primary Care Provider: ROSSY Reviewed Notes: Nurses Notes, Medications, Allergies Allergies: Coded Allergies: NO KNOWN ALLERGIES (Unverified , 03/11/19) Home Meds Reported Medications Metformin Hydrochloride (Metformin Hcl) 500 Mg Tab, 1000 MG PO BID for 30 Days, MG 06/03/25 Information Source: Patient, Spouse Mode of Arrival: Ambulatory Location: Right Extremity Location: Leg Timing: Weeks Prehospital treatment: None Severity: Moderate Able to Move Extremity: Yes Bear Weight: Limited Pain: Moderate Mechanism: Spontaneous Circumstances: Spontaneous Onset of Symptoms: Spontaneous Symptoms: Pain DVT Risk Factors: NONE Associated signs and symptoms: Leg pain Past Medical History PAST MEDICAL HISTORY: DM Past Medical History (Other): History of low back pain concerns. Surgical History: Denies all surgeries Family History Family History: Unknown Social History Smoker: Non-Smoker Alcohol: Denies ETOH Use Drugs: Denies Drug Use Lives In: Home Constitutional: denies: chills, diaphoresis, fatigue, fever, malaise, sweats, weakness, others EENTM: denies: blurred vision, double vision, ear bleeding, ear discharge, ear drainage, ear pain, ear ringing, eye pain, eye redness, hearing loss, mouth pain, mouth swelling, nasal discharge, nose bleeding, nose congestion, nose pain, photophobia, tearing, throat pain, throat swelling, voice changes, others Respiratory: denies: cough, hemoptysis, orthopnea, SOB at rest, shortness of breath, SOB with excertion, stridor, wheezing, others Cardiovascular: denies: chest pain, dizzy spells, diaphoresis, Dyspnea on exertion, edema, irregular heart beat, left arm pain, lightheadedness, palpitations, PND, syncope, others Gastrointestinal: denies: abdomen distended, abdominal pain, blood streaked bowels, constipated, diarrhea, dysphagia, difficulty swallowing, hematemesis, melena, nausea, poor appetite, poor fluid intake, rectal bleeding, rectal pain, vomiting, others Genitourinary: denies: burning, dysuria, flank pain, frequency, hematuria, i ncontinence, penile discharge, penile sore, pain, testicle pain, testicle swelling, urgency, others Neurological: denies: dizziness, fainting, headache, left sided numbness, left sided weakness, numbness, paresthesia, pre-existing deficit, right sided numbness, right sided weakness, seizure, speech problems, tingling, tremors, weakness, others Musculoskeletal: reports: others (right lower leg pain); denies: back pain, gout, joint pain, joint swelling, muscle pain, muscle stiffness, neck pain Integumetry: denies: bruises, change in color, change in hair/nails, dryness, laceration, lesions, lumps, rash, wounds, others Allergic/Immunocompromised: denies: Difficulty Healing, Frequent Infections, Hives, Itching, others Hematologic/Lymphatic: denies: anemia, blood clots, easy bleeding, easy bruising, swollen glands, others Endocrine: denies: excessive hunger, excessive sweating, excessive thirst, excessive urination, flushing, intolerance to cold, intolerance to heat, unexplained weight gain, unexplained weight loss, others Psychiatric: denies: anxiety, bipolar disorder, depression, hopeless, panic disorder, schizophrenia, sleepless, suicidal, others All Other Systems: Reviewed and Negative Physical Exam General Appearance: Moderate Distress (Due to right lower extremity pain concerns.), Normal HEENT: Normal ENT Inspection, Pharynx Normal, TMs Normal Neck: Full Range of Motion, Non-Tender, Normal, Normal Inspection Respiratory: Chest Non-Tender, Lungs Clear, No Accessory Muscle Use, No Respiratory Distress, Normal Breath Sounds Cardiovascular: No Edema, No JVD, No Murmur, No Gallop, Normal Peripheral Pulses, Regular Rate/Rhythm Breast Exam: Deferred Gastrointestinal: No Organomegaly, Non Tender, No Pulsatile Mass, Normal Bowel Sounds, Soft Genitalia: Deferred Pelvic: Deferred Rectal: Deferred Extremities: Other (Right lower extremity was unremarkable and physical examination. No edema, erythema or ecchymosis noted. Patient has some callus formation on the anterior aspect of the right knee, superior she had the tibial tuberosity. Mild reduced range of motion displayed. Patient denies any saddle paresthesia. Distal neurovascularly intact.) Neurologic: Alert, No Motor Deficits, Normal Affect, Normal Mood, No Sensory Deficits Cerebellar Function: NOT DONE Reflexes: NOT DONE Skin: Dry, Normal Color, Warm Lymphatic: No Adenopathy Was a procedure done? Was a procedure done?: No Differential Diagnosis EXT Differential Diagnosis: Deep Vein Thrombosis, Other (Lumbar radiculopathy, degenerative disc disease of the lumbar spine) X-Ray, Labs, Meds, VS Vital Signs Date Time Temp Pulse Resp B/P (MAP) Pulse Ox O2 Delivery O2 Flow Rate FiO2 08/10/25 15:35 98.1 101 20 115/81 96 98.1 X-Ray, Labs, Meds, VS Comment All studies performed the ED were evaluated by me personally. Imaging studies of the lumbar spine revealed some degenerative disc disease as well as some spinal stenosis. Patient has been advised to follow up with his primary care provider for pain management as well as probable orthopedic referral and evaluation. Time of 1ST Reevaluation: 16:35 Reevaluation 1ST: Improved Consultation: PCP, Other (Orthopedist) Patient Education/Counseling: Diagnosis, Treatment Family Education/Counseling: No Family Present Sepsis Recent Procedure: No On Antibiotic Therapy: No Respiratory Rate >20: No Heart Rate >90: No Temp<36 C (96.8 F) or >38.3 C: No SBP <90 or MAP <65 mmHG: No New Acute Mental Status Change: No Is the patient on CPAP, BIPAP,: No IV fluid given: No Departure 1 Departure Time of Disposition: 16:36 Impression: Primary Impression: Lumbosacral radiculopathy due to degenerative joint disease of spine Additional Impression: Spinal stenosis Disposition: 01 HOME / SELF CARE / HOMELESS Condition: Stable Additional Instructions: Advised patient utilize medication as needed for symptomatic pain relief. Patient should follow up with the primary care provider for discussions related to today's visit. Patient should see a orthopedic spinal surgeon for continued evaluation and management. e-Prescriptions Tramadol Hcl (Tramadol Hcl) 50 Mg Tab 50 MG PO Q6HP PRN, #12 TAB Prov: ZOË BRITTON PAC 08/10/25 Gabapentin (Gabapentin) 300 Mg Cap 1 CAP PO Q6HP PRN, #30 CAP 0 Refills Prov: ZOË BRITTON PAC 08/10/25 Ibuprofen (Ibuprofen) 800 Mg Tab 1 TAB PO Q8HP PRN, #20 TAB 0 Refills Prov: ZOË BRITTON PAC 08/10/25 Discharged With: Self, Spouse Critical Care Note Critical Care Time?: No Stability Stability form required: No Heart Score Heart Score: Heart Score Response (Comments) Value History N/A 0 EKG N/A 0 Age N/A 0 Risk Factors N/A 0 Troponin N/A 0 Total 0 I personally scribed for ZOË BRITTON PAC ([email or web address]) on 08/10/25 at 16:11. Electronically submitted by Neva Magallon ([email or web address]). ZOË BRITTON PAC Aug 10, 2025 16:11
--- NOTE | 2025-08-10 16:19 | DVH ---
Indication: Radiculopathy Technique: XY LUMBAR SPINE 3 VIEWXY Comparison: None FINDINGS/IMPRESSION: There is a CBD plastic stent. Lumbar heights are maintained. Moderate multilevel disc space narrowing with endplate sclerosis most pronounced at L1-2, L2-3. Straightening of normal lumbar spine curvature. [id number] multilev el neural foraminal stenosis most pronounced at L4-5 and L5-S1.
[2025-08-10] MEDS ORDERED: GABA-1250 PO (16:38)
[2025-08-10] MEDS ORDERED: IBUP-1456 PO (16:38)
[2025-08-10] MEDS ORDERED: TRAM50TA2 PO (16:38)
[2025-08-10 17:00] VITALS: BP 106/74; PULSE 103; RESP 18; TEMP 97.7; O2SAT 95
[2025-08-10] MEDS: GABAPENTIN 300 MG CAP PO ONE (17:08)
== END 2025-08-10 17:55 | disposition home or self-care (01) ==
LOC: ER 15:35
DX: M54.17 Radiculopathy, lumbosacral region (principal); M48.061 Spinal stenosis, lumbar region without neurogenic claudication; E11.9 Type 2 diabetes mellitus without complications; Z79.84 Long term (current) use of oral hypoglycemic drugs
CPT/HCPCS: 72100